=== PATIENT | male | born 1945 | race Caucasian/White ===

== ENCOUNTER 2023-05-20 11:27 | Emergency (ER) | payer OTHER, SELFPAY ==
[2023-05-20 11:42] VITALS: BP 175/89; PULSE 68; RESP 16; TEMP 36.1; O2SAT 99
--- NOTE | 2023-05-20 11:43 | PC.NURSE ---
in br to obtain ua spec.
--- NOTE | 2023-05-20 13:05 | ED.GENADULT ---
HPI - General Adult General Chief complaint: Urogenital-Male Stated complaint: Urinating Problems Source: patient Mode of arrival: ambulatory Limitations: no limitations History of Present Illness HPI narrative: Patient presents for evaluation of lower urinary tract symptoms for last 4 days. Symptoms include urgency, frequency, hesitancy, intermittent weak stream, dysuria, and suprapubic pressure. he denies any fever, chills, nausea, vomiting, low back pain. He has a history of prostate cancer which was identified back around 2013. He underwent radiation at that time. He indicates he had recurrence back in 2019. He is currently on Xtandi. He contacted his urologist office today as he has a CT scan scheduled a couple weeks from now. They advised he come to an urgent care for further evaluation. Related Data Home Medications Medication Instructions Recorded Confirmed Testosterone And Psa Remover IM [id number] 05/20/23 Xantdi 05/20/23 amlodipine 2.5 mg tablet mg 05/20/23 cefadroxil 500 mg capsule mg 05/20/23 fluorometholone 0.1 % eye drp 05/20/23 drops,suspension folic acid-vit B6-vit B12 2.5 tablet 05/20/23 mg-25 mg-2 mg tablet (WesTab Max) gabapentin 400 mg capsule mg 05/20/23 indapamide 1.25 mg tablet mg 05/20/23 insulin glargine-yfgn 100 unit/mL unit subcut 05/20/23 (3 mL) subcutaneous pen (Semglee (insulin glargine-yfgn) Pen) lisinopril 40 mg tablet mg 05/20/23 metformin 500 mg tablet,extended mg PO 05/20/23 release 24 hr omeprazole 20 mg capsule,delayed mg 05/20/23 release simvastatin 40 mg tablet mg 05/20/23 Allergies Allergy/AdvReac Type Severity Reaction Status Date / Time No Known Allergies Allergy Unverified 05/20/23 11:41 Review of Systems Review of Systems: CONSTITUTIONAL: Denies fever, chills, or sweats. EYES: Denies visual changes, redness, or discharge. ENT: Denies rhinorrhea, congestion, sore throat, or otalgia. CARDIOVASCULAR: Denies chest pain, palpitations, or edema. RESPIRATORY: Denies cough or dyspnea. GASTROINTESTINAL: Denies abdominal pain, nausea, vomiting, or diarrhea. GENITOURINARY: Reports urinary urgency, frequency, hesitancy, dribbling, intermittent force of stream, suprapubic pressure and dysuria. SKIN: Denies rash or itching. MUSCULOSKELETAL: Denies back pain, joint pain, or myalgia. NEUROLOGIC: Denies headache, numbness, dizziness, or weakness. PSYCHIATRIC: Denies anxiety or depression. PMFSH Past Medical History Medical History Prostate cancer Surgical History Surgical History No pertinent past surgical history Family History Family History Mother Family history non-contributory Social History Social History Substance use: never Living arrangements: incarcerated Occupation/Education: retired Gender identity (if verbalized by the patient): Male Sexual Orientation (if Verbalized by the Patient): Straight or Heterosexual Spiritual care concerns: No Exam Narrative: GENERAL: Well-appearing, well-nourished, and in no acute distress. HEAD: Normocephalic, atraumatic. EYES: PERRLA and EOMI. ENT: Nares clear, no rhinorrhea or epistaxis. Mucous membranes moist. Oropharynx without tonsillar hypertrophy exudate or other lesions. Bilateral TMs pearly lopez nonbulging NECK: Supple. No adenopathy or masses. No carotid bruits or JVD CHEST: Clear to auscultation. No respiratory distress. No wheezes rales or rhonchi HEART: Regular rate and rhythm. No murmur heard. Normal peripheral pulses. ABDOMEN: Soft, nontender, nondistended, normal active bowel sounds. EXTREMITIES: Normal range of motion. No edema. SKIN: Warm, dry, no rash. PROSTATE:Firm. Not boggy. No gross enlargement NEURO: No
== END 2023-05-20 13:09 | disposition home or self-care (01) ==
PROVIDERS: Emergency Provider Nurse Practitioner; PCP Family Medicine
DX: R39.15 Urgency of urination (principal); R35.0 Frequency of micturition; R39.11 Hesitancy of micturition; R30.0 Dysuria; R10.30 Lower abdominal pain, unspecified; Z85.46 Personal history of malignant neoplasm of prostate
CPT/HCPCS: 81003; 99213; G0463

== ENCOUNTER 2024-10-21 10:52 | Outpatient (CLI) | payer OTHER, SELFPAY ==
--- NOTE | ~2024-10-21 | XR_ITS ---
EXAM: XR shoulder LT min 2V DATE: 10/21/2024 11:32 HISTORY: Primary osteoarthritis, unspecified shoulder . COMPARISON: None available. FINDINGS: Decreased mineralization. No fracture or dislocation. No lytic or blastic lesion. Mild AC joint and severe glenohumeral joint osteoarthritic change. Calcification and ossification in the supe rior rotator cuff. No erosion or periosteal change. Calcified left midlung granuloma. Degenerative ch anges in the spine. IMPRESSION: Mild AC joint and severe glenohumeral joint osteoarthritis. Rotator cuff calcific tendini tis. Reviewed, dictated and finalized at location K. ING SUPERINTENDENT IMPRESSION: Mild AC joint and severe glenohumeral joint osteoarthritis. Rotator cuff calcific tendinitis.
--- NOTE | ~2024-10-21 | XR_ITS ---
EXAM: XR knee LT 3V DATE: 10/21/2024 11:32 HISTORY: Osteoarthritis of knee, unspecified . COMPARISON: None available. FINDINGS: Normal mineralization. No fracture or dislocation. No lytic or blastic lesion. Mild medial and lateral joint space narrowing. Quadriceps enthesopathy. Small volume joint fluid. Mild tricompar tmental osteophytosis. No erosion or periosteal change. Atherosclerotic vascular calcifications. 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 Reviewed, dictated and finalized at location K. [employer] ATTENDANT
== END 2024-10-21 10:53 | disposition home or self-care (01) ==
PROVIDERS: PCP Family Medicine; Visit Provider Nurse Practitioner Family
DX: M19.012 Primary osteoarthritis, left shoulder (principal); M75.32 Calcific tendinitis of left shoulder; M17.12 Unilateral primary osteoarthritis, left knee
CPT/HCPCS: 73030; 73562

== ENCOUNTER 2025-08-04 09:49 | Outpatient (CLI) | payer OTHER, SELFPAY ==
--- OUTSIDE RECORDS SUMMARY | 2025-08-04 10:35 | XMS_ITS | Encounter Summary ---
Author Organization [facility] Healthcare Address [address] [place] [address] Care Team Providers Care Bioinformatician Name Role Phone Miguel Mccord MD Primary Care Provider [phone] Darrell Marroquin MD Unavailable Emeli Marin CDE Unavailable [phone] Jung Hillman MD Primary Care Provider [phone] Encounter Details Date Type Department Care Team (Late st Contact Info) Description 02/22/2020 Telephone [facility] ([facility]) [address] [place] [id number] Sera Sequeira, RT Social History Tobacco Use Types Packs/Day Years Used Date Smoking Tobacco: Former Sex and Gender Information Value Date Recorded Sex Assigned at Not on file Legal 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 Gender Identity Male 01/02/2020 11:06 PM CDT Sexual Orientation Straight 01/02/2020 11 :06 PM CDT documented as of this encounter Plan of Treatment Not on file documented as of this encounter Visit Diagnoses Not on filedocumented in this encounter Care Teams Bioinformatician Relationship Specialty Start Date End Date Miguel Mccord MD [address] [place] [address] [id number] PCP - General 07/23/17 08/29/20 Jung Hillman MD [facility] [address] [place] [address] PCP - General Family Medicine 06/23/25 Darrell Marroquin MD [address] [facility] [address] [place] [address] Consulting Physician Pain Management 12/05/22 Emeli Marin, ROSEMARY [address] [facility] [place] [address] Attending Ambulatory Care 02/27/23 06/23/24 documented as of this encounter
--- OUTSIDE RECORDS SUMMARY | 2025-08-04 10:35 | XMS_ITS | Clinical Summary ---
Author Organization [facility] Address [address] [place] [address] Care Team Providers Care Bus Boy Name Role Phone Darrell Marroquin MD Unavailable Jung Hillman MD Primary Care Provider [phone] Allergies No known active allergies Medications RESTASIS 0.05 % ophthalmic emulsion Administer 1 drop into the right eye every 12 (twelve) hours 2017 Active aspirin 81 mg tablet Take 1 tablet (81 mg total) by mouth daily Active enzalutamide (XTANDI) 40 mg capsule Take 2 capsules (80 mg total) by mouth daily 2019 Active cholecalciferol (VITAMIN D-3) 1,000 unit capsule Take 1 capsule (1,000 Units total) by mouth daily Active loteprednol (LOTEMAX) 0.5 % ophthalmic suspension Administer 1 drop into both eyes daily 2023 Active HumaLOG 100 unit/mL pen for injection Inject 6 units for blood sugar readings over 200. Maximum 18 units per day. PRN for procedures. 15 mL 1 2024 Active Additional Information Patient taking differently: Daily PRN, Inject 6 units for blood sugar readings over 200. Maximum 18 units per day. PRN for procedures., Reported on 06/29/2025 blood glucose diagnostic (glucose blood) stripIndications:Type 2 diabetes mellitus with hyperglycemia, with long-term current use of insulin (HCC),Pure hypercholesterolemia,E ssential hypertension Use once daily to test blood sugars 100 each 11 11/03 Active lancets 33 gauge miscIndications:Type 2 diabetes mellitus with hyperglycemia, with long-term current use of insulin (HCC),Pure hypercholesterolemia,E ssential hypertension Use to test blood sugar daily 100 each 11 2024 Active pregabalin (LYRICA) 100 mg capsule Take 1 capsule (100 mg total) by mouth daily Active insulin glargine (LANTUS) 100 unit/mL (3 mL) pen for injection INJECT 40 UNITS UNDER THE SKIN NIGHTLY 30 mL 2 2024 Active pen needle, diabetic (BD Ultra-Fine Short Pen Needle) 31 gauge x 5/16 needle USE TO INJECT ONCE DAILY DIRECTED 100 each 2024 Active simvastatin (ZOCOR) 40 mg tabletIndications:Pure hypercholesterolemia Take 1 tablet (40 mg total) by mouth daily 90 tablet 2 2024 Active indapamide (LOZOL) 1.25 mg tablet Take 1 tablet (1.25 mg total) by mouth daily 90 tablet 2 2024 Active lisinopriL (PRINIVIL,ZESTRIL) 40 mg tablet Take 1 tablet (40 mg total) by mouth daily 90 tablet 2 2024 Active amLODIPine (NORVASC) 2.5 mg tablet Take 1 tablet (2.5 mg total) by mouth daily 100 tablet 1 2024 Active omeprazole (PriLOSEC) 20 mg capsule TAKE 1 CAPSULE BY MOUTH EVERY DAY 100 capsule 1 2024 Active metFORMIN XR (GLUCOPHAGE XR) 500 mg 24 hr tabletIndications:Type 2 diabetes mellitus with hyperglycemia, with long-term current use of insulin ([facility]) TAKE 2 TABLETS BY MOUTH TWICE A DAY 360 tablet 1 2024 Active metFORMIN XR (GLUCOPHAGE XR) 500 mg 24 hr tablet TAKE 2 TABLETS BY MOUTH TWICE A DAY 360 tablet 1 08/01 Discontinued Active Problems Problem Noted Date Diagnosed Date Type 2 diabetes mellitus wit h hyperglycemia, with long-term current use of insulin 06/24/2024 Slow transit constipation 07/03/2023 Chronic bilateral low back pain with bilateral s ciatica 08/01/2022 Gastroesophageal reflux disease without esophagi tis 12/06/2020 Abdominal aortic aneurysm (AAA) without rupture 12/06/2020 Prostate cancer 08/30/2020 Pure hypercholesterolemia 08/30/2020 Essential hypertension 08/30/2020 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 08/30/2020 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 Assessment & Plan (10/06/2019 3:06 PM REAL ESTATE CLOSER): Comfortable Assessment & Plan (07/29/2018 2:25 PM REAL ESTATE CLOSER): Comfortable 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 Assessment & Plan (10/06/2019 3:06 PM REAL ESTATE CLOSER): status post (s/p) trab right eye (OD)- intraocular pressure (IOP) stable off all medications Bleb yokasta negative Follows with local windows vmware engineer [id number] for IOP checks between our annual visits Assessment & Plan (07/29/2018 2:25 PM REAL ESTATE CLOSER): status post (s/p) trab right eye (OD)- intraocular pressure (IOP) stable History of cornea transplant OD 199807/20/2015 Assessment & Plan (05/21/2022 1:11 PM CDT): Hx Endothelial Fuchs dystrophy s/p PKP 1998 TODAY: -Doing well, graft clear -Band K but stable and asymptomatic PLAN: -Continue FML Daily OD -Continue Olena PRN OD -Contine Restasis BID OD -LTX PRN -Monocular precautions (phthisis OS 2/2 ruptured globe) -RTC annual, sooner PRN Assessment & Plan (04/24/2021 1:46 PM CDT): Hx Endothelial Fuchs dystrophy status post (s/p) PKP 1998 TODAY: -Doing well, graft clear -Band K but stable and asymptomatic PLAN: -Continue FML Daily OD -Continue Olena PRN OD -Contine Restasis BID OD -LTX PRN -Monocular precautions (phthisis OS 2/2 ruptured globe) -RTC annual, sooner PRN Assessment & Plan (03/28/2020 4:13 PM CDT): Stable CPM RTC 1 yr Assessment & Plan (02/16/2019 1:03 PM CDT): Confocal today 826 OD CPM Restasis BID OU Lotemax drops QD OD Lotemax francisco PRN OS Olena 128 PRN QD - BID (in am) OD Keep Dr. 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 Assessment & Plan (02/16/2019 12:55 PM CDT): S/p enucleation Irregular astigmatism 05/24/2010 Neovascularization, cornea 05/24/2010 Resolved Problems Problem Noted Date Diagnosed Date Resolved Date Change in bowel habit 07/03/20232023 Radicular leg pain 08/01/2022 Medicare annual wellness visit, subsequent 12/06/2020 12/12/2022 Type 2 diabetes mellitus wit hout complication, without long-term current use of insulin 12/06/2020 06/24/2024 Exposure to potentially hazardous body fluids 08/30/20 20 04/18/2022 Chronic allergic conjunctivitis 05/24/2010 12/15/2023 Encounters Date Type Department Care Team Description 07/14/2025 Telephone [facility] Medical [facility] at [address] [place] [address] Jung Hillman MD Referral Request 06/29/2025 2:30 PM CDT Office Visit [facility] at [address] [place] [address] Jung Hillman MD Medicare annual wellness visit, subsequent (Primary Dx); Essential hypertension; Type 2 diabetes mellitus with hyperglycemia, with long-term current use of insulin (HCC); Pure hypercholesterolemia; Gastroesophageal reflux disease without esophagitis; Chronic bilateral low back pain with bilateral sciatica; Prostate cancer (HCC) 06/28/2025 Results Follow-Up [facility] at [address] [address] Jaqui Wheeler PA Hemoglobin A1c, Comprehensive metabolic panel, CBC with auto differential, Additional followed-up results: 2 06/21/2025 Telephone [facility] at [address] [address] Jung Hillman MD Referral Request 05/10/2025 1:00 PM CDT Office Visit [facility] at [address] [address] Jung Hillman MD Type 2 diabetes mellitus with hyperglycemia, with long-term current use of insulin (HCC) (Primary Dx); Essential hypertension; Gastroesophageal reflux disease without esophagitis; Pure hypercholesterolemia; Chronic bilateral low back pain without sciatica 05/08/2025 Results Follow-Up [facility] at [address] [address] Jaqui Wheeler PA Comprehensive metabolic panel, CBC with auto differential, Lipid panel, Hemoglobin A1c from Last 3 Months Immunizations Immunization Administration Dates Next Due Influenza, Quad, Adjuvantate d, Intramuscular 05/28/2022,05/23/2021 Influenza, Quadrivalent, Hig h Dose, Preservative Free, Intrr 06/24/2023,06/09/2020 Influenza, Trivalent, High D ose, Split, Preservative Free, Intramuscular 07/01/2024 Influenza, Unspecified 06/22/2019 Pfizer SARS-CoV-2 Monovalent Vaccination (12+ Yrs) PURPLE 07/07/2021,12/05/2020,11/12/2020 Pneumococcal Conjugate PCV 13 07/16/2018 Pneumococcal Conjugate Pcv20 07/08/2024 Pneumococcal Polysaccharide PPV23 07/23/2019 RSV Vaccine, Pref, Recombina nt, Subunit, Adjuvanted, PF, IM (Arexvy) 07/01/2024 Sars-cov-2 Covid-19 Mrna, Bi valent, Original/omicron Ba.1 07/01/2024,06/24/2023 Surgical History Surgery Date Site/Laterality Comments CATARACT EXTRACTION W/ INTRAOCULAR LENS IMPLANT Right CORNEAL TRANSPLANT Bilateral PROSTATECTOMY Medical History Medical History Date Comments Glaucoma Cancer (HCC) prostate Diabetes mellitus Hypertension Asthma Type 2 diabetes mellitus GERD (gastroesophageal reflux disease) Arthritis Benign prostatic hyperplasia 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 for fall Family History Medical History Relation Name Comments No Known Problems Daughter Early Father Lan Heart attack Father Lan Heart disease Father Lan Hypertension Mother Coty Cancer Mother's Sister Melissa Cancer Other Crohn's disease Other Cataracts Neg Hx Fuchs' dystrophy Neg Hx Glaucoma Neg Hx Macular degeneration Neg Hx Retinal detachment Neg Hx Relation Name Status Comments Daughter Alive Father Lan Mother [place]y Mother's Sister Melissa Other Social History Tobacco Use Types Packs/Day Years Used Date Smoking Tobacco: Former Cigarettes 1 45 Pipe Quit: 04/04/20 22 Smokeless Tobacco: Never Tobacco Cessation:Counseling Given: Not Answered Alcohol Use Standard Drinks/Week Comments Never 0 (1 standard drink = 0.6 oz pur e alcohol) AUDIT-C Answer Date Recorded Q1: How often do you have a drink containing alcohol? Never 08/28/2023 Q2: How many drinks containi ng alcohol do you have on a typical day when you are drinking? Patient does not drink Q3: How often do you have si x or more drinks on one occasion? Never 08/28/2023 PHQ-2 Answer Date Recorded PHQ-2 Total Score (If total score is 3 or more points, staff should administer the PHQ-9) 0 06/29/2025 Personal Safety Answer Date Recorded Have you ever been in or are you currently in a harmful physical or emotional relationship or is someone making you feel afraid or unsafe? Denies 08/28/2023 Sex and Gender Information Value Date Recorded Sex Assigned at Not on file Legal Sex Male 3:15 AM REAL ESTATE CLOSER Gender Identity Male 01/02/2020 11:06 PM CDT Sexual Orientation Straight 01/02/2020 11 :06 PM CDT Last Filed Vital Signs Vital Sign Reading Time Taken Comments Blood Pressure 170/78 06/29/2025 2:42 PM CDT Pulse 62 06/29/2025 2:42 PM CDT Temperature 36.6 C (97.8 F) 06/29/2025 2:42 PM CDT Respiratory Rate 18 08/28/2023 11:45 AM REAL ESTATE CLOSER Oxygen Saturation 96% 06/29/2025 2:42 PM CDT Inhaled Oxygen Concentration - - Weight 97.3 kg (214 lb 6.4 oz) 06/29/2025 2:42 P M CDT Height 180.3 cm (5' 11) 06/29/2025 2:42 PM CDT Body Mass Index 29.9 06/29/2025 2:42 PM CDT Plan of Treatment Health Maintenance Due Date Last Done Comments Hepatitis C Screening 1945 DTaP/Tdap/Td Vaccine (1 - Tdap) 1958 Hepatitis B Screening 1965 Zoster Vaccine (1 of 2) 1966 Lung Cancer Screening 1997 Dilated Eye Exam 12/01/2024 12/02/2023, , 07/10/2022, Additional history exists Influenza Vaccine (#1) 2025 , 06/24/2023, 05/28/2022, Additional history exists Albumin Creatinine Ratio, Urine 10/29/2025 5, 10/06/2023 Hemoglobin A1C 12/26/2025 06/27/2025, 04/22, 10/29/2024, Additional history exists Lipid Panel 06/27/2026 06/27/2025, 04/22, 10/29/2024, Additional history exists eGFR 06/27/2026 06/27/2025, 04/22, 10/29/2024, Additional history exists Depression Screening 06/29/2026 06/29/2025, 05/10/2025, 06/24/2024, Additional history exists Fall Risk Assessment 06/29/2026 06/29/2025, 06/24/2024, 12/15/2023, Additional history exists Foot Exam 06/29/2026 06/29/2025, 04/22, 06/16/2023, Additional history exists Well Visit 65+ 06/29/2026 06/29/2025, 11/2023, 06/16/2023, Additional history exists Colon Cancer Screening-CT Colonography Discontinued 08/28/2023 Colon Cancer Screening-Colonoscopy Discontinued 08/28/2023 Colon Cancer Screening-DNA Stool Discontinued 08/28/20 23, 09/06/2020 Colon Cancer Screening-FIT Discontinued 08/28/2023, Colon Cancer Screening-FOBT Discontinued 08/28/2023, 1 11/07/2019 Colon Cancer Screening-Sigmoidoscopy Discontinued 08/28/2023 Colorectal Cancer Screening Discontinued Covid-19 Vaccine Discontinued 07/01/2024, 06/2024, 06/24/2023, Additional history exists Pneumococcal vaccine 65+ Completed 024, 07/23/2019, 07/16/2018 Abdominal Aortic Aneurysm (A AA) Screen Completed 08/09/2024, 09/25/2023, 06/16/2023, Additional history exists Goals Goal Patient Goal Type Associated Problems Recent Progress Patient-Stated? Author Diabetes Goal - Patient verbalizes knowledge and ability to manage diabetes ACO Care Management No Emeli Marin CDE Note: Problem: Knowledge deficit - Diabetes Interventions: - Provide educational materials specific to patient needs. - Follow up within 1-2 weeks of mailing to review materials and ensure patient understands information provided. Diabetic Diet Goal - Patient will verbalize understanding of diabetic diet and ability to adhere to diet guidelines ACO Care Management No Emeli Marin CDE Note: Problem: Knowledge deficit- Diabetic Diet Interventions: - Assess barriers to diabetic diet adherence and provide resources appropriate for patient. Address barriers to diabetic diet adherence. - Provide educational resources with diet guidelines, Healthy Plate method, carb counting, or calorie restricted ADA diet, as ordered by physician. - Encourage a few small diet changes at a time. Create a plan with patient. Provide follow-up weekly to assess patient and take next steps in plan. Procedures Procedure Name Priority Date/Time Associated Diagnosis Comments PSA SCREEN Routine 06/27/2025 11:19 AM CDT Type 2 diabetes mellitus with hyperglycemia, with long-term current use of insulin (HCC) Essential hypertension Pure hypercholesterolemia LIPID PANEL Routine 06/27/2025 11:19 AM CDT Type 2 diabetes mellitus with hyperglycemia, with long-term current use of insulin (HCC) Essential hypertension Pure hypercholesterolemia CBC WITH AUTO DIFFERENTIAL Routine 06/27/2025 11:19 AM CDT Type 2 diabetes mellitus with hyperglycemia, with long-term current use of insulin (HCC) Essential hypertension Pure hypercholesterolemia COMPREHENSIVE METABOLIC PANEL Routine 06/27/2025 11:19 AM CDT Type 2 diabetes mellitus with hyperglycemia, with long-term current use of insulin (HCC) Essential hypertension Pure hypercholesterolemia HEMOGLOBIN A1C Routine 06/27/2025 11:19 AM CDT Type 2 diabetes mellitus with hyperglycemia, with long-term current use of insulin (HCC) Essential hypertension Pure hypercholesterolemia HEMOGLOBIN A1C Routine 05/05/2025 11:01 AM CDT Type 2 diabetes mellitus with hyperglycemia, with long-term current use of insulin (HCC) Pure hypercholesterolemia Essential hypertension LIPID PANEL Routine 05/05/2025 11:01 AM CDT Type 2 diabetes mellitus with hyperglycemia, with long-term current use of insulin (HCC) Pure hypercholesterolemia Essential hypertension CBC WITH AUTO DIFFERENTIAL Routine 05/05/2025 11:01 AM CDT Type 2 diabetes mellitus with hyperglycemia, with long-term current use of insulin (HCC) Pure hypercholesterolemia Essential hypertension COMPREHENSIVE METABOLIC PANEL Routine 05/05/2025 11:01 AM CDT Type 2 diabetes mellitus with hyperglycemia, with long-term current use of insulin (HCC) Pure hypercholesterolemia Essential hypertension ALBUMIN CREATININE RATIO, URINE Routine 10/29/2024 1:38 PM REAL ESTATE CLOSER Type 2 diabetes mellitus with hyperglycemia, without long-term current use of insulin (HCC) CT ABDOMEN PELVIS W CONTRAST Schedule Routine, Read Routine (OP Routine) 08/09/2024 11:31 AM REAL ESTATE CLOSER Prostatic malignant neoplasm (HCC) DIABETES EYE EXAM Routine 12/02/2023 COLONOSCOPY 08/28/2023 10:26 AM REAL ESTATE CLOSER from Last 3 Months or Most Recently Relevant to Health Maintenance Results * PSA screen (06/27/2025 11:19 AM CDT) PSA 0.04 < OR = 4.00 ng/mL [facility] Comment: The total PSA value from this assay system is standardized against the WHO standard. The test result will be approximately 20% lower when compared to the equimolar-standardized total PSA ([place]). Comparison of serial PSA results should be interpreted with this fact in mind. This test was performed using the Siemens chemiluminescent method. Values obtained from different assay methods cannot be used interchangeably. PSA levels, regardless of value, should not be interpreted as absolute evidence of the presence or absence of disease. Blood 06/27/2025 11:1 9 AM CDT 06/27/2025 11:19 AM CDT Narrative [facility] - 06/28/2025 6:14 AM CDT FASTING:YES FASTING: YES Jung Hillman MD LAB BLOOD ORDERABLES Final Re sult [facility] [address] [place] [address] * (ABNORMAL) CBC with auto differential (06/27/2025 11:19 AM CDT) WBC 7.1 3.8 - 10.8 Thousand/u L [facility] RBC, POC 4.20 4.20 - 5.80 Million/uL [facility] Hgb 12.2(L) 13.2 - 17.1 g/dL [facility] Hct 38.2(L) 38.5 - 50.0 % [facility] MCV 91.0 80.0 - 100.0 fL [facility] MCH 29.0 27.0 - 33.0 pg [facility] MCHC 31.9(L) 32.0 - 36.0 g/dL [facility] Comment: For adults, a slight decrease in the calculated MCHC value (in the range of 30 to 32 g/dL) is most likely not clinically significant; however, it should be interpreted with caution in correlation with other red cell parameters and the patient's clinical condition. Rdw 14.3 11.0 - 15.0 % [facility] Platelets 321 140 - 400 Thousand/u L [facility] MPV 10.3 7.5 - 12.5 fL [facility] Neutrophils, abs 4,828 1,500 - 7,800 cells/uL [facility] Lymphocytes, abs 1,519 850 - 3,900 cells/uL [facility] Monocyte abs 568 200 - 950 cells/uL [facility] Eosinophils, abs 163 15 - 500 cells/uL [facility] Basophils, abs 21 0 - 200 cells/uL [facility] Neutrophils 68 % [facility] Lymphocyte pct 21.4 % [facility] Monocytes 8.0 % [facility] Eosinophils 2.3 % [facility] Basophils 0.3 % [facility] Blood 06/27/2025 11:1 9 AM CDT 06/27/2025 11:19 AM CDT Narrative [facility] - 06/28/2025 6:14 AM CDT FASTING:YES FASTING: YES Jung Hillman MD LAB BLOOD ORDERABLES Final Re sult [facility] [address] [place] [address] * (ABNORMAL) Hemoglobin A1c (06/27/2025 11:19 AM CDT) Hgb A1C 7.8(H) <5.7 % of total Hgb [facility] Comment: For someone without known diabetes, a hemoglobin A1c value of 6.5% or greater indicates that they may have diabetes and this should be confirmed with a follow-up test. For someone with known diabetes, a value <7% indicates that their diabetes is well controlled and a value greater than or equal to 7% indicates suboptimal control. A1c targets should be individualized based on duration of diabetes, age, comorbid conditions, and other considerations. Currently, no consensus exists regarding use of hemoglobin A1c for diagnosis of diabetes for children. Blood 06/27/2025 11:1 9 AM CDT 06/27/2025 11:19 AM CDT Narrative [facility] - 06/28/2025 6:14 AM CDT FASTING:YES FASTING: YES us Jung Hillman MD LAB BLOOD ORDERABLES Final Re [facility] [address] [place] [address] * (ABNORMAL) Lipid panel (06/27/2025 11:19 AM CDT) [facility] Cholesterol 166 <200 mg/dL [facility] HDL 47 > OR = 40 mg/dL [facility] Triglycerides 201(H) <150 mg/dL [facility] Comment: If a non-fasting specimen was collected, consider repeat triglyceride testing on a fasting specimen if clinically indicated. Mary et al. J. of Clin. Lipidol. 2015;9:129-169. LDL 89 mg/dL (calc) [facility] Comment: Reference range: <100 Desirable range <100 mg/dL for primary prevention; <70 mg/dL for patients with CHD or diabetic patients with > or = 2 CHD risk factors. LDL-C is now calculated using the Aaron-Alysha calculation, which is a validated novel method providing better accuracy than the Friedewald equation in the estimation of LDL-C. Aaron DODGE et al. STEFAN. 2013;310(19): 2463-5890 (http://education.tripJane.[employer]/faq/DTE797) Chol/HDL ratio 3.5 <5.0 (calc) [facility] Non-HDL, (LDL+VLDL) 119 <130 mg/dL (calc) [facility] Comment: For patients with diabetes plus 1 major ASCVD risk factor, treating to a non-HDL-C goal of <100 mg/dL (LDL-C of <70 mg/dL) is considered a therapeutic option. Blood 06/27/2025 11:1 9 AM CDT 06/27/2025 11:19 AM CDT Narrative [facility] - 06/28/2025 6:14 AM CDT FASTING:YES FASTING: YES Jung Hillman MD LAB BLOOD ORDERABLES Final Re sult [facility] [address] [place] [address] * (ABNORMAL) Comprehensive metabolic panel (06/27/2025 11:19 AM CDT) Glucose 124(H) 65 - 99 mg/dL [facility] Comment: Fasting reference interval For someone without known diabetes, a glucose value between 100 and 125 mg/dL is consistent with prediabetes and should be confirmed with a follow-up test. BUN 16 7 - 25 mg/dL [facility] Creatinine 0.75 0.70 - 1.28 mg/dL [facility] eGFR 92 > OR = 60 mL/min/1.7 3m2 [facility] BUN/creat ratio SEE NOTE: 6 - 22 (calc) [facility] Comment: Not Reported: BUN and Creatinine are within reference range. Sodium 136 135 - 146 mmol/L [facility] Potassium, pl 4.1 3.5 - 5.3 mmol/L [facility] Chloride 94(L) 98 - 110 mmol/L [facility] CO2 29 20 - 32 mmol/L [facility] Calcium 10.2 8.6 - 10.3 mg/dL [facility] Protein, sr 7.5 6.1 - 8.1 g/dL [facility] Albumin 4.6 3.6 - 5.1 g/dL [facility] GLOBULIN 2.9 1.9 - 3.7 g/dL (calc) [facility] Alb/glob ratio 1.6 1.0 - 2.5 (calc) [facility] Bilirubin, total 0.9 0.2 - 1.2 mg/dL [facility] Alk phos 59 35 - 144 U/L [facility] AST 13 10 - 35 U/L [facility] ALT (SGPT) 9 9 - 46 U/L [facility] Blood 06/27/2025 11:1 9 AM CDT 06/27/2025 11:19 AM CDT Narrative [facility] - 06/28/2025 6:14 AM CDT FASTING:YES FASTING: YES us Jung Hillman MD LAB BLOOD ORDERABLES Final Re sult [facility] [address] [place] [address] * (ABNORMAL) CBC with auto differential (05/05/2025 11:01 AM CDT) WBC 5.4 3.8 - 10.8 Thousand/u L [facility] RBC, POC 3.92(L) 4.20 - 5.80 Million/uL [facility] Hgb 11.4(L) 13.2 - 17.1 g/dL [facility] Hct 36.9(L) 38.5 - 50.0 % [facility] MCV 94.1 80.0 - 100.0 fL [facility] MCH 29.1 27.0 - 33.0 pg [facility] MCHC 30.9(L) 32.0 - 36.0 g/dL [facility] Comment: For adults, a slight decrease in the calculated MCHC value (in the range of 30 to 32 g/dL) is most likely not clinically significant; however, it should be interpreted with caution in correlation with other red cell parameters and the patient's clinical condition. Rdw 13.4 11.0 - 15.0 % [facility] Platelets 225 140 - 400 Thousand/u L [facility] MPV 10.7 7.5 - 12.5 fL [facility] Neutrophils, abs 3,213 1,500 - 7,800 cells/uL [facility] Lymphocytes, abs 1,361 850 - 3,900 cells/uL [facility] Monocyte abs 578 200 - 950 cells/uL [facility] Eosinophils, abs 211 15 - 500 cells/uL [facility] Basophils, abs 38 0 - 200 cells/uL [facility] Neutrophils 59.5 % [facility] Lymphocyte pct 25.2 % [facility] Monocytes 10.7 % [facility] Eosinophils 3.9 % [facility] Basophils 0.7 % [facility] Blood 05/05/2025 11:0 1 AM CDT 05/05/2025 11:02 AM CDT Narrative [facility] - 05/06/2025 4:25 AM CDT FASTING:YES FASTING: YES Jung Hillman MD LAB BLOOD ORDERABLES Final Re sult Performing Organization Address [facility] Co de Phone Number [place] [address] [place] [address] * (ABNORMAL) Hemoglobin A1c (05/05/2025 11:01 AM CDT) Hgb A1C 8.3(H) <5.7 % of total Hgb [facility] Comment: For someone without known diabetes, a hemoglobin A1c value of 6.5% or greater indicates that they may have diabetes and this should be confirmed with a follow-up test. For someone with known diabetes, a value <7% indicates that their diabetes is well controlled and a value greater than or equal to 7% indicates suboptimal control. A1c targets should be individualized based on duration of diabetes, age, comorbid conditions, and other considerations. Currently, no consensus exists regarding use of hemoglobin A1c for diagnosis of diabetes for children. Blood 05/05/2025 11:0 1 AM CDT 05/05/2025 11:02 AM CDT Narrative [facility] - 05/06/2025 4:25 AM CDT FASTING:YES FASTING: YES Jung Hillman MD LAB BLOOD ORDERABLES Final Re sult Performing Organization Address [facility] Co de Phone [facility] [address] [place] [address] * (ABNORMAL) Lipid panel (05/05/2025 11:01 AM CDT) Cholesterol 183 <200 mg/dL [facility] HDL 46 > OR = 40 mg/dL [facility] Triglycerides 215(H) <150 mg/dL [facility] Comment: If a non-fasting specimen was collected, consider repeat triglyceride testing on a fasting specimen if clinically indicated. Mary et al. J. of Clin. Lipidol. 2015;9:129-169. LDL 103(H) mg/dL (calc) [facility] Comment: Reference range: <100 Desirable range <100 mg/dL for primary prevention; <70 mg/dL for patients with CHD or diabetic patients with > or = 2 CHD risk factors. LDL-C is now calculated using the Sylvester calculation, which is a validated novel method providing better accuracy than the Friedewald equation in the estimation of LDL-C. Aaron SS et al. STEFAN. 2013;310(19): 9325-7664 (http://education.[employer]/faq/GHF984) Chol/HDL ratio 4.0 <5.0 (calc) [facility] Non-HDL, (LDL+VLDL) 137(H) <130 mg/dL (calc) [facility] [employer] [facility] Comment: For patients with diabetes plus 1 major ASCVD risk factor, treating to a non-HDL-C goal of <100 mg/dL (LDL-C of <70 mg/dL) is considered a therapeutic option. Blood 05/05/2025 11:0 1 AM CDT 05/05/2025 11:02 AM CDT Narrative [facility] - 05/06/2025 4:25 AM CDT FASTING:YES FASTING: YES Jung Hillman MD LAB BLOOD ORDERABLES Final Re sult [facility] [address] [place] [address] * (ABNORMAL) Comprehensive metabolic panel (05/05/2025 11:01 AM CDT) Glucose 183(H) 65 - 99 mg/dL [facility] Comment: Fasting reference interval For someone without known diabetes, a glucose value >125 mg/dL indicates that they may have diabetes and this should be confirmed with a follow-up test. BUN 18 7 - 25 mg/dL [facility] Creatinine 0.83 0.70 - 1.28 mg/dL [facility] eGFR 90 > OR = 60 mL/min/1.7 3m2 [facility] [employer] BUN/creat ratio SEE NOTE: 6 - 22 (calc) [facility] Comment: Not Reported: BUN and Creatinine are within reference range. Sodium 136 135 - 146 mmol/L [facility] [employer] Potassium, pl 4.3 3.5 - 5.3 mmol/L [facility] Chloride 98 98 - 110 mmol/L [facility] CO2 28 20 - 32 mmol/L [facility] Calcium 9.7 8.6 - 10.3 mg/dL [facility] [employer] Protein, sr 6.8 6.1 - 8.1 g/dL [facility] Albumin 4.3 3.6 - 5.1 g/dL [facility] [employer] GLOBULIN 2.5 1.9 - 3.7 g/dL (calc) [facility] Alb/glob ratio 1.7 1.0 - 2.5 (calc) [facility] Bilirubin, total 0.5 0.2 - 1.2 mg/dL [facility] Alk phos 57 35 - 144 U/L [facility] AST 12 10 - 35 U/L [facility] ALT (SGPT) 9 9 - 46 U/L [facility] Blood 05/05/2025 11:0 1 AM CDT 05/05/2025 11:02 AM CDT Narrative [facility] - 05/06/2025 4:25 AM CDT FASTING:YES FASTING: YES us Jung Hillman MD LAB BLOOD ORDERABLES Final Re sult [facility] [address] [place] [address] * (ABNORMAL) Albumin Creatinine Ratio, Urine (10/29/2024 1:38 PM REAL ESTATE CLOSER) Creatinine, ur 79 20 - 320 mg/dL [facility] Microalbumin, ur 4.0 See Note: mg/dL [facility] Comment: Reference Range: Reference Range Not established Microalbumin/creat ratio 51(H) <30 mg/g creat [facility] Comment: The ADA defines abnormalities in albumin excretion as follows: Albuminuria Category Result (mg/g creatinine) Normal to Mildly increased <30 Moderately increased 30-299 Severely increased > OR = 300 The ADA recommends that at least two of three specimens collected within a 3-6 month period be abnormal before considering a patient to be within a diagnostic category. Urine 10/29/2024 1:38 PM REAL ESTATE CLOSER 10/29/2024 1:39 PM REAL ESTATE CLOSER Narrative [facility] - 10/30/2024 7:49 AM REAL ESTATE CLOSER FASTING:YES FASTING: YES Jung Hillman MD LAB URINE ORDERABLES Final [facility] [address] [place] [address] * CT Abdomen Pelvis W Contrast (08/09/2024 11:31 AM REAL ESTATE CLOSER) Anatomical Region Laterality Modality Body N/A Computed Tomogra phy 08/09/2024 4:16 PM REAL ESTATE CLOSER Narrative 08/09/2024 4:27 PM REAL ESTATE CLOSER EXAM DESCRIPTION: CT ABDOMEN PELVIS W CONTRAST REASON FOR STUDY: prostatic malignant neoplasm Prostatic malignant neoplasm TECHNIQUE: CT scan of the abdomen and pelvis performed with intravenous and without oral contrast using helical scanning technique with dynamic intravenous contrast injection. Reconstructed coronal and sagittal MPR images reviewed. All images stored on PACS. Automated exposure control was used as a dose optimization technique for this examination. CONTRAST TYPE/DOSE: 100mL of IOVERSOL 350 MG IODINE/ML INTRAVENOUS SYRINGE injected via intravenous COMPARISON: 06/04/2023. FINDINGS: LOWER CHEST: There is a calcified granuloma scratch the calcified granulomas in the lingula. No pleural effusion. LIVER: Diffuse hepatic steatosis. Liver size and contour normal. No focal hepatic lesion. GALLBLADDER: No gallstones or overt inflammatory change. BILE DUCTS: No biliary ductal dilation. Top spleen size normal. No focal splenic lesion. SPLEEN: No pancreatic mass or inflammatory change. PANCREAS: Normal ADRENALS: There is a macroscopic fat attenuation right adrenal nodule, this is 1.2 x 0.8 cm -85 Hounsfield units evidence of a benign adrenal myelolipoma. KIDNEYS/URINARY TRACT: No right renal calculus. No left renal calculus. There are low-density renal lesions, in the lower pole left kidney 1.4 cm -2 Hounsfield units which meets criteria as a cyst. The urinary bladder is unremarkable. GI: No evidence of bowel obstruction. Prominent fecal material is seen in the colon. The appendix and terminal ileum are normal. Small sliding hiatal hernia. No pneumatosis. PERITONEUM: No ascites or free air. There is no mesenteric mass or lymphadenopathy. RETROPERITONEUM: Mildly prominent retroperitoneal lymph nodes are slightly smaller. An example in the left para-aortic station 1.2 x 0.9 cm (image 76), previously this measured 1.4 x 0.8 cm. A left common iliac chain lymph node is now 0.8 x 0.7 cm (image 89), previously 1.0 x 0.9 cm as remeasured. REPRODUCTIVE: Prostate is small. There are metallic densities in the prostate. VASCULATURE: There is mild aneurysmal dilation of the abdominal aorta. The abdominal aorta is 3.7 x 3.8 cm (image 75) which is unchanged. MUSCULOSKELETAL: Bone windows demonstrate no acute or aggressive osseous abnormality. OTHER: No other abnormality. IMPRESSION: No evidence of an acute abnormality of the abdomen and pelvis. Mildly prominent retroperitoneal lymph nodes are slightly smaller compared with the prior CT examination and prostate PET. Unchanged mild aneurysmal dilation of the abdominal aorta 3.8 cm. Hepatic steatosis. Right adrenal myelolipoma. Small sliding hiatal hernia. THIS IS AN ELECTRONICALLY VERIFIED FINAL REPORT 08/09/2024 4:27 PM - Electronically signed by Edgardo Dominguez M.D. CH: NAVIN Report ID: [id number] Reading Location: [id number] Procedure Note Edgardo Dominguez Jr., MD - 08/09/2024 EXAM DESCRIPTION: CT ABDOMEN PELVIS W CONTRAST REASON FOR STUDY: prostatic malignant neoplasm Prostatic malignant neoplasm TECHNIQUE: CT scan of the abdomen and pelvis performed with intravenousand without oral contrast using helical scanning technique with dynamic intravenous contrast injection. Reconstructed coronal and sagittal MPRimages reviewed. All images stored on PACS. Automated exposure control was usedas a dose optimization technique for this examination. CONTRAST TYPE/DOSE: 100mL of IOVERSOL 350 MG IODINE/ML INTRAVENOUSSYRINGE injected via intravenous COMPARISON: 06/04/2023. FINDINGS: LOWER CHEST: There is a calcified granuloma scratch thecalcified granulomas in the lingula. No pleural effusion. LIVER: Diffuse hepatic steatosis. Liver size and contour normal. Nofocal hepatic lesion. GALLBLADDER: No gallstones or overt inflammatory change. BILE DUCTS: No biliary ductal dilation. Top spleen size normal. Nofocal splenic lesion. SPLEEN: No pancreatic mass or inflammatory change. PANCREAS: Normal ADRENALS: There is a macroscopic fat attenuation right adrenal nodule,this is 1.2 x 0.8 cm -85 Hounsfield units evidence of a benign adrenalmyelolipoma. KIDNEYS/URINARY TRACT: No right renal calculus. No left renal calculus. There are low-density renal lesions, in the lower pole left kidney 1.4 cm-2 Hounsfield units which meets criteria as a cyst. The urinary bladder is unremarkable. GI: No evidence of bowel obstruction. Prominent fecal material is seenin the colon. The appendix and terminal ileum are normal. Small slidinghiatal hernia. No pneumatosis. PERITONEUM: No ascites or free air. There is no mesenteric mass or lymphadenopathy. RETROPERITONEUM: Mildly prominent retroperitoneal lymph nodes areslightly smaller. An example in the left para-aortic station 1.2 x 0.9 cm (image76), previously this measured 1.4 x 0.8 cm. A left common iliac chain lymphnode is now 0.8 x 0.7 cm (image 89), previously 1.0 x 0.9 cm as remeasured. REPRODUCTIVE: Prostate is small. There are metallic densities in the prostate. VASCULATURE: There is mild aneurysmal dilation of the abdominal aorta.The abdominal aorta is 3.7 x 3.8 cm (image 75) which is unchanged. MUSCULOSKELETAL: Bone windows demonstrate no acute or aggressive osseous abnormality. OTHER: No other abnormality. IMPRESSION: No evidence of an acute abnormality of the abdomen and pelvis. Mildly prominent retroperitoneal lymph nodes are slightly smallercompared with the prior CT examination and prostate PET. Unchanged mild aneurysmal dilation of the abdominal aorta 3.8 cm. Hepatic steatosis. Right adrenal myelolipoma. Small sliding hiatal hernia. THIS IS AN ELECTRONICALLY VERIFIED FINAL REPORT 08/09/2024 4:27 PM - Electronically signed by Edgardo Dominguez M.D. CH: Report ID: [id number] Reading Location: [id number] Taran Wall MD IMG CT PROCEDURES Final Resul t * DIABETES EYE EXAM (12/02/2023) SCRIBED DIABETIC DILATED EYE EXAM Normal Historical Provider HEALTH MAINTENANCE Final Result * COLONOSCOPY (08/28/2023 10:26 AM REAL ESTATE CLOSER) Anatomical Region Laterality Modality Other Narrative Procedure Note Glenn Go, DO - 08/28/2023 10:26 AM CST [facility] GI ENDOSCOPY Patient Name: Glenn Galo Procedure Date: 08/28/2023 10:26 AM Date of : 1945 Admit Type: Outpatient Age: 78 Gender: Male Attending MD: Glenn Go D.O. Room: [facility] ENDOSCOPY ROOM 05 Note Status: Finalized Procedure: Colonoscopy Indications: Screening for colorectal malignant neoplasm Referring MD: Jung Hillman M.D. Providers: Glenn Go D.O. Medicines: See the Anesthesia note for documentation of the administered medications Complications: No immediate complications. Estimated Blood Loss: Estimated blood loss: none. Procedure: The benefits, risks and alternatives of theprocedure and sedation were discussed and informed consentwas obtained. All questions were answered. Please referto the signed informed consent document in the medical record. The scope was passed under direct vision.The PCF-H180AL colonoscope was introduced through theanus and advanced to the cecum, identified byappendiceal orifice and ileocecal valve. The colonoscopy was performed without difficulty. The patient tolerated the procedure well. The quality of the bowel preparation was good. Prep was administered in asplit dose. Findings: The entire examined colon appeared normal on direct and retroflexion views. Impression: - The entire examined colon is normal on direct and retroflexion views. - No specimens collected. Recommendation: - Patient has a contact number available for emergencies. The signs and symptoms of potential delayed complications were discussed with thepatient. Return to normal activities tomorrow. Written discharge instructions were provided to thepatient. - Resume previous diet. - Continue present medications. - Repeat colonoscopy in 10 years forsurveillance. Glenn Go D.O. 08/28/2023 11:09:16 AM Number of Addenda: 0 Note Initiated On: 08/28/2023 10:26 AM Recognized by the [employer] [employer] for promoting quality in endoscopy us Glenn Go DO ENDOSCOPY PROCEDURES Fin al Result from Last 3 Months or Most Recently Relevant to Health Maintenance Insurance [facility] Member Subscriber Plan / Payer (Ef fective 2017-Present) Name:GLENN GALO Relation to Subscriber:Self Name:Onur Glenn Leydi Payer ID:[id number] (NAIC) Type:MEDICARE RISK OTHER Address: [place] [id number] Member Subscriber Plan / Payer (Ef fective 2019-Present) Name:Glenn Galo Relation to Subscriber:Self Name:Onur Glenn Leydi Payer ID:[id number] (NAIC) Type:MEDICARE RISK OTHER Address: [place] [id number] [facility] Advance Directives For more information, please contact: [phone] Documents on File Type Date Recorded Patient Triage Licensed Practical Nurse Expl anation ADVANCE DIRECTIVE 12/06/2020 ADVANCE DIRECTIVE 10/13/2020 Care Teams Bus Boy Relationship Specialty Start Date End Date Jung Hillman MD [facility] [address] [place] [address] PCP - General Family Medicine 06/23/25 Darrell Marroquin MD [address] [facility] [address] Consulting Physician Pain Management 12/05/22
--- OUTSIDE RECORDS SUMMARY | 2025-08-04 10:35 | XMS_ITS ---
Author Organization 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 Assessment & Plan (10/06/2019 3:06 PM ADVENTURE THERAPIST): status post (s/p) trab right eye (OD)- intraocular pressure (IOP) stable off all medications Bleb yokasta negative Follows with local slip bridge operator [id number] for IOP checks between our annual visits Assessment & Plan (07/29/2018 2:25 PM ADVENTURE THERAPIST): status post (s/p) trab right eye (OD)- [...] me Assessment & Plan (08/18/2018 2:06 PM ADVENTURE THERAPIST): Mild edema Trial of Olena 128 thru am prn Confocal 6 mos AM appt in 6mos Assessment & Plan (07/29/2018 2:24 PM ADVENTURE THERAPIST): 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 Past Treatment and Therapy Plans No past plan information found. Lifetime Dose Tracking * Chemical Lifetime Dose Automatic Entry Manual Entr y Fluoro Time 1.3 minutes 1.3 minutes 0 minutes Air kerma at the reference point (Ka,r) 55.1 mGy 5 5.1 mGy 0 mGy Resolved Problems Problem Noted Date Diagnosed Date Resolved Date Change in bowel habit 07/03/20232023 Radicular leg pain 08/01/2022 Medicare annual wellness visit, subsequent 12/06/2020 12/12/2022 Type 2 diabetes mellitus wit hout complication, without long-term current use of insulin 12/06/2020 06/24/2024 Exposure to potentially hazardous body fluids 08/30/20 20 04/18/2022 Chronic allergic conjunctivitis 05/24/2010 12/15/2023
--- OUTSIDE RECORDS SUMMARY | 2025-08-04 10:35 | XMS_ITS | Encounter Summary ---
Author Organization [facility] Address [address] [place] [address] Care Team Providers Care Manager Change Name Role Phone Darrell Marroquin MD Unavailable Jung Hillman MD Primary Care Provider [phone] Encounter Details Date Type Department Care Team (Late st Contact Info) Description 06/28/2025 Results Follow-Up [facility] Family Medicine at [address] [place] [address] [id number] Hemoglobin A1c, Comprehensive metabolic panel, CBC with auto differential, Additional followed-up results: 2 Social History Tobacco Use Types Packs/Day Years Used Date Smoking Tobacco: Former Cigarettes 1 45 Pipe Quit: 04/04/20 22 Smokeless Tobacco: Never Alcohol Use Standard Drinks/Week Comments Never 0 [...] on file 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 Gender Identity Male 01/02/2020 11:06 PM CDT Sexual Orientation Straight 01/02/2020 11 :06 PM CDT documented as of this encounter Functional Status * Question Answer Date of Assessment Author One or more falls in the last year 0 2024 1:32 PM CDT Ananya Gibson MA * BP Location Answer Date of Assessment Author Left arm 06/29/2025 2:42 PM CDT Vinh Gibson MA * BP Location Answer Date of Assessment Author Left arm 06/29/2025 2:42 PM CDT Vinh Gibson MA documented as of this encounter Plan of Treatment Not on file documented as of this encounter Goals Goal Patient Goal Type Associated Problems Recent Progress Patient-Stated? Author Diabetes Goal - Patient verbalizes knowledge and ability to manage diabetes ACO Care Management Emeli Rodriguez CDE Note: Problem: Knowledge deficit - Diabetes [...] patient and take next steps in plan. documented as of this encounter Visit Diagnoses Not on filedocumented in this encounter Care Teams Manager Change Relationship Specialty Start Date End Date Jung Hillman MD [address] [facility] [address] [address] PCP - General Family Medicine 06/23/25 Darrell Marroquin MD [address] [facility], [address] [address] Consulting Physician Pain Management 12/05/22 documented as of this encounter
--- OUTSIDE RECORDS SUMMARY | 2025-08-04 10:35 | XMS_ITS | Encounter Summary ---
Author Organization [facility] Address [address] [place] [address] Care Team Providers Care Crepe Sole Scourer Name Role Phone Miguel Mccord MD Primary Care Provider [phone] Darrell Marroquin MD Unavailable Emeli Marin CDE Unavailable [phone] Jung Hillman MD Primary Care Provider [phone] Encounter Details Date Type Department Care Team (Late st Contact Info) Description 02/11/2020 Telephone [facility] ([facility]) [address] [place] [id number] [address]que[address], [place] Social History Tobacco Use Types Packs/Day Years Used Date Smoking Tobacco: Former Sex and Gender Information Value Date Recorded Sex Assigned at Not on file 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 Gender Identity Male 01/02/2020 11:06 PM CDT Sexual Orientation Straight 01/02/2020 11 :06 PM CDT documented as of this encounter Plan of Treatment Not on file documented as of this encounter Visit Diagnoses Not on filedocumented in this encounter Care Teams Crepe Sole Scourer Relationship Specialty Start Date End Date Miguel Mccord MD [address] [place] [id number] PCP - General 07/23/17 08/29/20 Jung Hillman MD [facility] [address] [place] [address] PCP - General Family Medicine 06/23/25 Darrell Marroquin MD [address] [facility], [facility] [address] [place] [address] Consulting Physician Pain Management 12/05/22 Emeli Marin, ROSEMARY [address] [place] [address] Repair Service Dispatcher 02/27/23 06/23/24 documented as of this encounter
--- OUTSIDE RECORDS SUMMARY | 2025-08-04 10:35 | XMS_ITS | Clinical Summary ---
Author Organization [facility] Address [address] [place] [address] Care Team Providers Care Customer Assistance Associate Name Role Phone Jung Hillman MD Primary Care Provider [phone] Social History Tobacco Use Types Packs/Day Years Used Date Smoking Tobacco: Never Assessed Sex and Gender Information Value Date Recorded Sex Assigned at Not on file Legal Sex Male 5:44 PM CDT Gender Identity Not on file Sexual Orientation Not on file Plan of Treatment Health Maintenance Due Date Last Done Comments Hepatitis C 1965 DTaP, Tdap and Td Vaccines (1 - Tdap) 1966 Zoster Vaccines (1 of 2) 1997 Annual Medicare Wellness Visit 2012 RSV Immunization or 60+ Years (1 - 1-dose 75+ series) 2022 COVID-19 Vaccine ( season) 2025 06/24/2023, 06/27/2021, 12/05/2020, Additional history exists Influenza Adult (#1) 2025 06/22/2019 Pneumococcal Vaccine: 50+ Years Completed 07/23/2019, 07/16/2018 Hepatitis A Vaccines Aged Out No long er eligible based on patient's age to complete this topic Meningococcal B Vaccine Aged Out No l onger eligible based on patient's age to complete this topic Meningococcal Vaccine Aged Out No mis mariama eligible based on patient's age to complete this topic RSV Immunizations Under 20 Months Aged Out No longer eligible based on patient's age to complete this topic Insurance [employer] Care Teams Customer Assistance Associate Relationship Specialty Start Date End Date Jung Hillman MD [address] [address] PCP - General FAMILY PRACTICE 02/26/24
--- NOTE | 2025-08-04 10:52 | ECG_ITS ---
Test Date: 2025-08-04 11:05:10 Measurements Intervals [place] Rate: 34 P: 88 SC: 224 QRS: 10 QRSD: 132 T: -8 QT: 431 QTc: 324 Interpretive Statements SINUS RHYTHM WITH OCCASIONAL PREMATURE ATRIAL CONTRACTIONS RIGHT BUNDLE BRANCH BLOCK [120+ ms QRS DURATION, UPRIGHT V1, 40+ ms S IN I/aVL/V4/V5/V6] WARNING: DATA QUALITY MAY AFFECT INTERPRETATION No previous ECG available for comparison Electronically Signed On 08-04-2025 12:34:40 FOLDING MACHINE TENDER by Randal Mcrae M.D.
[2025-08-04 11:16] LABS: Hematocrit 35.3 % (42.0-52.0); Hemoglobin 11.4 g/dL (14.0-18.0); Immature Granulocyte Percent A 0.4 % (0-0.5); Lymphocytes Absolute Auto 1.16 K/mm3 (0.9-3.2); Mean Corpuscular HGB Conc 32.3 g/dl (32-36); Mean Corpuscular Hemoglobin 29.3 pg (26-34); Mean Corpuscular Volume 90.7 fl (80-100); Nucleated Red Blood Cells Absolute Auto 0.000 K/mm3 (0.0-0.012); Nucleated Red Blood Cells Perc 0.0 % (0.0-0.2); Platelet Count Result 243 k/mm3 (150-375); Red Blood Count 3.89 M/mm3 (4.6-6.20); White Blood Count 7.0 K/mm3 (4.5-10.0)
[2025-08-04 11:25] LABS: Hemoglobin A1C 7.8 % (<5.7)
[2025-08-04 11:37] LABS: Albumin Level 4.5 g/dL (3.5-5.1)
[2025-08-04 11:50] LABS: Anion Gap 11 mmol/L (4-12); Blood Urea Nitrogen 16 mg/dL (9-20); Calcium 9.9 mg/dL (8.4-10.2); Carbon Dioxide 26 mmol/L (22-30); Chloride 98 mmol/L (98-107); Estimated Glomerular Filt Rate > 60; Glucose 171 mg/dL (65-110); Potassium 4.3 mmol/L (3.4-5.0); Sodium 135 mmol/L (137-145)
[2025-08-04 12:29] LABS: MRSA (PCR) NOT DETECTED (NOT DETECTE)
== END 2025-08-04 09:50 | disposition home or self-care (01) ==
LOC: ANHSURGERY 09:53
PROVIDERS: Anesthesiology; PCP Family Medicine; Visit Provider Orthopaedic Surgery
DX: M16.11 Unilateral primary osteoarthritis, right hip (principal); E11.9 Type 2 diabetes mellitus without complications; Z79.899 Other long term (current) drug therapy; Z01.818 Encounter for other preprocedural examination
CPT/HCPCS: 36415; 80048; 80307; 82040; 83036; 85025; 87641; 93005

== ENCOUNTER 2025-08-30 16:14 | Observation (INO) | payer OTHER, SELFPAY ==
[2025-08-04 10:08] VITALS: BP 183/73; PULSE 67; RESP 16; TEMP 36.9; O2SAT 98; BMI 31.4
--- NOTE | 2025-08-04 10:35 | PC.NURSE ---
Addendum entered by Maria A Amaro RN 08/04/25 10:47: Pt aware to FU w PCP regarding Elevated BP, pt will log it till next week and record and take w him to appt. States its been running high recently with all going on JRRN Original Note: [facility] has started construction of its new state of the art ER which will open Spring 2026. With this, we anticipate parking may be a challenge for some our surgical patients and families. Parking spaces are limited but are available for all Surgical, obstetrics, and ER patients sharing this lot. If you arrive and find you are having a hard time finding a parking space, please note that we understand the challenges, please drive around the hospital and park near Hospital Entrance 1. When you enter this entrance, you can ask a volunteer to direct or take you back to the surgical waiting area to check in. We appreciate everyone?s understanding of these expected challenges while we build for your future. Report to the Outpatient Waiting Room, entrance under the green pavilion located off [address], at time _1100am on date ___08/29/25____. Planned Procedure Time: __1:00pm .? Time changes happen often and if your time is changed the preop area will call you the afternoon before. - You and your visitor will be asked to self-screen and do not enter if you have any COVID symptoms. Please call surgeon if you need to reschedule. - A mask is optional within the hospital at this time. Patients may have clear liquids (water, carbonated beverages, clear teas, apple juice) until 3 hours prior to surgery with a maximum of 20 ounces. - No food from midnight until time of surgery and no smoking, or chewing tobacco (or any form of nicotine). No chewing gum, candy or mints. (10:00am) Take only the following medications with a SIP of water on the morning of surgery: ____Pregabalin and Amlodipine DO NOT STOP ANY OF YOUR OTHER PRESCRIPTION MEDICATIONS PRIOR TO SURGERY EXCEPT THE FOLLOWING Hold all vitamins and supplements for 3 days per anesthesiologist. Medications to discontinue per physician ___Aspirin and NSAIDS for [address] Ackerman Date to take last dose 08/23/25 Please no make-up, nail lebanese, hairspray, perfume, deodorant, or body powder the day of surgery.? No jewelry (including any body piercings) or valuables the day of surgery, leave them at home.? Please take a shower or bath the night before, or the morning of, surgery with an antibacterial soap DIAL .? Wear comfortable, loose fitting clothing.? Bring overnight bag and walker, tennis shoes - Jewelry must be removed prior to entering the operating room.? Rings and piercings that are not removed may be cut off. - The hospital will not accept responsibility for valuables.? - Please leave all valuables, including medications, at home the day of surgery. If you are going home after surgery, a licensed otr hazmat company driver must drive you home.? - NO public transportation without another adult if you receive anesthesia. - We recommend that an adult stay with you for 24 hours following discharge. - We also recommend that you do not drive, make important decision, drink alcoholic beverages, or take any drugs that were not prescribed by your health care provider for at least 24 hours after your discharge time. Follow any additional instructions given to you from your surgeon. Telephone instructions given to __Patient and and asked if any additional questions and then verbalized understanding. Patient advised to call surgeon office or pre surgery nurse liaison [phone] if any additional questions.
--- NOTE | 2025-08-25 07:11 | PM.IMHP2 ---
H&P: HPI History of Present Illness Date/Time: 08/25/25 07:11 Chief Complaint: Patient has hip pain right. He has pain with any manipulation of the hip. The pain is in the groin and thigh. It is worse with activity somewhat relieved by rest. He has failed conservative treatment like to consider hip replacement surgery at this time Review of Systems Musculoskeletal: Musculoskeletal: Reports arthralgias and Reports stiffness Neurologic: Reports abnormal gait [facility] Past Medical History Medical History Prostate cancer Surgical History Surgical History No pertinent past surgical history Family History Family History (Updated 07/21/25 @ 11:33 by Shelbi Sparks CMA) Mother Family history non-contributory Grandparent Cerebrovascular accident Father Heart disease Social History Social History (Updated 07/21/25 @ 11:33 by Shelbi Sparks CMA) Smoking status: Never smoker Tobacco type: cigarettes Alcohol intake: never Substance use: never Lack of Transportation: No Lack of Food: Never True Current Housing: I Have Housing Concerned About Future Housing: No Difficulty Paying Gas/Electric Bills: No Difficulty Paying for Meds: No Currently Unemployed: No Education: Bachelor's Degree Difficulty w/ Childcare or Family Care: No Living arrangements: incarcerated Occupation/Education: retired Gender identity (if verbalized by the patient): Male Sexual Orientation (if Verbalized by the Patient): Straight or Heterosexual Spiritual care concerns: No Meds Home Medications and Allergies Home Medications ?Medication ?Instructions ?Recorded ?Confirmed ?Type Xantdi 80 mg PO DAILY 05/20/23 08/04/25 History amlodipine 2.5 mg tablet 2.5 mg PO DAILY 05/20/23 08/04/25 History indapamide 1.25 mg tablet 1.25 mg PO DAILY 05/20/23 08/04/25 History lisinopril 40 mg tablet 40 mg PO DAILY 05/20/23 08/04/25 History omeprazole 20 mg capsule,delayed 20 mg PO DAILY 05/20/23 08/04/25 History release aspirin 81 mg tablet 81 mg PO DAILY 07/21/25 08/04/25 History cholecalciferol (vitamin D3) 25 25 mcg PO DAILY 07/21/25 08/04/25 History mcg (1,000 unit) capsule metformin 500 mg tablet,extended 1,000 mg PO QPM 07/21/25 08/04/25 History release 24 hr simvastatin 40 mg tablet 20 mg PO QPM 07/21/25 08/04/25 History cholecalciferol (vitamin D3) 25 25 mcg PO DAILY 08/04/25 08/04/25 History mcg (1,000 unit) capsule (Vitamin D3) insulin glargine 100 unit/mL (3 40 unit subcut QPM 08/08/25 History mL) subcutaneous pen (Lantus Solostar U-100 Insulin) Allergies Allergy/AdvReac Type Severity Reaction Status Date / Time No Known Allergies Allergy Verified 08/04/25 10:01 Exam Narrative: On exam he has internal rotation is 0 external rotation of 30 is a positive Stinchfield test he has grinding crepitus and pain with manipulation. He walks with an antalgic gait. Neurologically he is intact. Eyes: General: appearance normal, both eyes and all related structures Neck: Neck: supple Resp: Effort & Inspection: normal respiratory effort Cardio: Rate: regular rate Rhythm: regular rhythm Radiology Reports: Comments: [facility] [address] [place] [address] [address] [place] [address] Sebastian Ackerman M.D. XRay Report Ambulatory Signed Patient: Dung Mohr 07/21/25 07:10 XR hip RT 2V w AP pelvis Routine Interpretation: AP and lateral the right hip with the pelvis she demonstrates moderately severe degenerative changes of the RIGHT hip. No fracture, lesions, or masses are appreciated. Hip/Pelvis X-Ray 07/21/25 Knee X-Ray 10/21/24 Shoulder X-Ray 10/21/24 Orthopedics Result Report 07/21/25 Assessment and Plan Assessment and plan (1) Osteoarthritis of right hip: Code(s): M16.11 - Unilateral primary osteoarthritis, right hip Status: Acute Assessment and Plan: Patient has an arthritic right hip. He has failed conservative treatment. He would like to consider hip replacement surgery. I discussed the risks, benefits, limitations, and alternatives with the patient in detail. He understands and agrees would like to proceed will proceed with total hip arthroplasty on the right.
[2025-08-29] VITALS (13 sets, daily range): BP systolic 133–216; BP diastolic 67–96; PULSE 66–112; RESP 12–22; TEMP 36.3–36.9; O2SAT 93–100
--- OUTSIDE RECORDS SUMMARY | 2025-08-29 00:49 | XMS_ITS ---
Author Organization 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 Assessment & Plan (10/06/2019 3:06 PM BROWN STOCK WASHER): status post (s/p) trab right eye (OD)- intraocular pressure (IOP) stable off all medications Bleb yokasta negative Follows with local construction economist [id number] for IOP checks between our annual visits Assessment & Plan (07/29/2018 2:25 PM BROWN STOCK WASHER): status post (s/p) trab right eye (OD)- [...] me Assessment & Plan (08/18/2018 2:06 PM BROWN STOCK WASHER): Mild edema Trial of Olena 128 thru am prn Confocal 6 mos AM appt in 6mos Assessment & Plan (07/29/2018 2:24 PM BROWN STOCK WASHER): Central graft clear Ischemic optic neuropathy of [...]
--- OUTSIDE RECORDS SUMMARY | 2025-08-29 00:49 | XMS_ITS | Encounter Summary ---
Author Organization [facility] Address [address] [place] [address] Care Team Providers Care E Commerce Analyst Name Role Phone Darrell Marroquin MD Unavailable Jung Hillman MD Primary Care Provider [phone] Encounter Details Date Type Department Care Team (Late st Contact Info) Description 08/07/2025 Results Follow-Up [facility] Family Medicine at [address] [place] [address] [address] [place], [place] [id number] XR Chest PA Lateral 2 Views, Transthoracic Echo (TTE) Complete W Doppler/CF, 24 HR Holter Monitor Social History Tobacco Use Types Packs/Day Years [...] points, staff should administer the PHQ-9) 0 08/05/2025 Personal Safety Answer Date Recorded Have you ever been in or are you currently in a harmful physical or emotional relationship or is someone making you feel afraid or unsafe? Denies 08/28/2023 Sex and Gender Information Value Date Recorded Sex Assigned at Not on file Legal Sex Male 3:15 AM READING PROFESSOR Gender Identity Male 01/02/2020 11:06 PM CDT Sexual Orientation Straight 01/02/2020 11 :06 PM CDT documented as of this encounter Miscellaneous Notes * Result Encounter Note - Davis Gomez - 08/16/2025 12:07 PM CST Appointment scheduled 08/22/2025 ING PROFESSOR documented in this encounter Plan of Treatment Not on [...] adhere to diet guidelines [facility] Care Management Eemli Rodriguez CDE Note: Problem: Knowledge deficit- Diabetic Diet [...] on filedocumented in this encounter Care Teams E Commerce Analyst Relationship Specialty Start Date End Date Jung Hillman MD [address] [place] [address] PCP - General Family Medicine 06/23/25 Darrell Marroquin MD [address] [facility] [address] Consulting Physician Pain Management 12/05/22 documented as of this encounter
--- OUTSIDE RECORDS SUMMARY | 2025-08-29 00:49 | XMS_ITS | Clinical Summary ---
Author Organization [facility] Address [address] [place] [address] Care Team Providers Care Department Of Mathematics Chair Name Role Phone Jung Hillman MD Primary Care Provider [phone] Social History Tobacco Use Types Packs/Day Years [...] complete this topic Insurance [employer] Care Teams Department Of Mathematics Chair Relationship Specialty Start Date End Date Jung Hillman MD [address] [address] PCP - General FAMILY PRACTICE 02/26/24
--- OUTSIDE RECORDS SUMMARY | 2025-08-29 00:49 | XMS_ITS | Clinical Summary ---
Author Organization [facility] Address [address] [place] [address] Care Team Providers Care Rn Medication Name Role Phone Darrell Marroquin MD Unavailable Jung Hillman MD Primary Care Provider [phone] Allergies No known active allergies Medications RESTASIS [...] drop into both eyes daily 2023 Active blood glucose diagnostic (glucose blood) stripIndications:Type 2 diabetes mellitus with hyperglycemia, with long-term current use of insulin (HCC),Pure hypercholesterolemia,E ssential hypertension Use once daily to test blood sugars 100 each 11/03 Active lancets 33 gauge miscIndications:Type 2 diabetes mellitus with hyperglycemia, with long-term current use of insulin (HCC),Pure hypercholesterolemia,E ssential hypertension Use to test blood sugar daily 100 each 2024 Active pregabalin (LYRICA) 100 mg capsule Take 1 capsule (100 mg total) by mouth daily Active insulin glargine (LANTUS) 100 unit/mL (3 mL) pen for injection INJECT 40 UNITS UNDER THE SKIN NIGHTLY 30 mL 2 2024 Active simvastatin (ZOCOR) 40 mg tabletIndications:Pure hypercholesterolemia Take 1 tablet (40 mg total) by mouth daily 90 tablet 2 2024 Active Additional Information Patient taking differently: 20 mgoral Daily, Reported on 08/05/2025 indapamide (LOZOL) 1.25 mg tablet Take 1 [...] with long-term current use of insulin (HCC) TAKE 2 TABLETS BY MOUTH TWICE A DAY 360 tablet 1 2024 Active pen needle, diabetic (BD Ultra-Fine Short Pen Needle) 31 gauge x 5/16 needle USE TO INJECT ONCE DAILY DIRECTED 100 each 1 2024 Active HumaLOG 100 unit/mL pen for injection Inject 6 units for blood sugar readings over 200. Maximum 18 units per day. PRN for procedures. 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 Assessment & Plan (10/06/2019 3:06 PM RATING CLERK): status post (s/p) trab right eye (OD)- intraocular pressure (IOP) stable off all medications Bleb yokasta negative Follows with local [id number] for IOP checks between our annual visits Assessment & Plan (07/29/2018 2:25 PM RATING CLERK): status post (s/p) trab right eye (OD)- [...] me Assessment & Plan (08/18/2018 2:06 PM RATING CLERK): Mild edema Trial of Olena 128 thru am prn Confocal 6 mos AM appt in 6mos Assessment & Plan (07/29/2018 2:24 PM RATING CLERK): Central graft clear Ischemic optic neuropathy of [...] 06/24/2024 Exposure to potentially hazardous body fluids 08/30/2004/18/2022 Chronic allergic conjunctivitis 05/24/2010 12/15/2023 Encounters Date Type Department Care Team Description 08/17/2025 Telephone [facility] Family Medicine at [address] [place] [address] Jung Hillman MD Medical Records Request 08/12/2025 Results Follow-Up [facility] Family Medicine at [address] [place] [phone] Jaqui Fischer PA Thyroid Function [facility] 08/10/2025 1:45 PM RATING CLERK - 08/10/2025 11:59 PM RATING CLERK Hospital Encounter [facility] Cardiac Testing [address] [place] [id number] Bradycardia; SOB (shortness of breath) Discharge Disposition: Discharge to home or self care 08/10/2025 1:44 PM RATING CLERK - 08/10/2025 11:59 PM RATING CLERK Hospital Encounter [facility] Cardiac Testing [address] [place] [phone] Bradycardia; SOB (shortness of breath) Discharge Disposition: Discharge to home or self care 08/09/2025 Telephone [facility] Medical [facility] Family Medicine at [address] [phone] Jaqui Fischer PA 08/08/2025 Orders Only [facility] Medical [facility] Family Medicine at [address] [phone] Jung Hillman MD 08/07/2025 Results Follow-Up [facility] Medical [facility] Family Medicine at [address] [phone] Jaqui Fischer PA XR Chest PA Lateral 2 Views, Transthoracic Echo (TTE) Complete W Doppler/CF, 24 HR Holter Monitor 08/05/2025 11:20 AM RATING CLERK - 08/05/2025 11:59 PM RATING CLERK Hospital Encounter [facility] Di[facility] Imaging [address] [place] [phone] SOB (shortness of breath) Discharge Disposition: Discharge to home or self care 08/05/2025 10:15 AM RATING CLERK Office Visit [facility] Medical [facility] Family Medicine at [address] [phone] Van Bevern, Jaqui A., PA Primary osteoarthritis of right hip (Primary Dx); Bradycardia; SOB (shortness of breath); Type 2 diabetes mellitus with hyperglycemia, with long-term current use of insulin (HCC); Gastroesophageal reflux disease without esophagitis; Pure hypercholesterolemia; Essential hypertension; Prostate cancer (HCC); 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); Obesity (BMI 30-39.9) 08/04/2025 Telephone [facility] Family Medicine at [address] [phone] Jung Hillman MD Abnormal BP and HR 07/14/2025 Telephone [facility] at [address] [phone] Jung Hillman MD Referral Request 06/29/2025 2:30 PM CDT Office Visit [facility] at [address] [phone] Jung Hillman MD Medicare annual wellness visit, subsequent (Primary Dx); Essential hypertension; Type 2 diabetes mellitus with hyperglycemia, with long-term current use of insulin (HCC); Pure hypercholesterolemia; Gastroesophageal reflux disease without esophagitis; Chronic bilateral low back pain with bilateral sciatica; Prostate cancer (HCC) 06/28/2025 Results Follow-Up [facility] at [address] [phone] Jaqui Fischer PA Hemoglobin A1c, Comprehensive metabolic panel, CBC with auto differential, Additional followed-up results: 2 06/21/2025 Telephone [facility] at [address] [phone] Jung Hillman MD Referral Request from Last 3 Months Immunizations Immunization Administration Dates Next Due Influenza, Quad, Adjuvantate d, Intramuscular 05/28/2022,05/23/2021 Influenza, Quadrivalent, Hig h Dose, Preservative Free, Intrr 06/24/2023,06/09/2020 Influenza, Trivalent, High D ose, Split, Preservative Free, Intramuscular 07/01/2024 Influenza, Unspecified 08/03/2025,06/22/2019 Pfizer SARS-CoV-2 Monovalent Vaccination (12+ Yrs) PURPLE [...] on file Legal Sex Male 3:15 AM RATING CLERK Gender Identity Male 01/02/2020 11:06 PM CDT Sexual Orientation Straight 01/02/2020 11 :06 PM CDT Last Filed Vital Signs Vital Sign Reading Time Taken Comments Blood Pressure 138/64 08/05/2025 10:44 AM RATING CLERK Pulse 59 08/05/2025 10:44 AM RATING CLERK Temperature 36.6 C (97.9 F) 08/05/2025 10:44 AM RATING CLERK Respiratory Rate 18 08/28/2023 11:4 5 AM RATING CLERK Oxygen Saturation 96% 08/05/2025 10: 44 AM RATING CLERK Inhaled Oxygen Concentration - - Weight 100.5 kg (221 lb 9.6 oz) 025 10:44 AM RATING CLERK Height 180.3 cm (5' 11) 08/05/2025 10: 44 AM RATING CLERK Body Mass Index 30.91 08/05/2025 10:44 AM RATING CLERK Plan of Treatment Health Maintenance Due Date Last Done Comments Hepatitis C Screening 1945 DTaP/Tdap/Td Vaccine (1 - Tdap) 1958 Hepatitis B Screening 1965 Zoster Vaccine (1 of 2) 1966 Lung Cancer Screening 1997 Dilated Eye Exam 12/01/2024 12/02/2023, , 07/10/2022, Additional history exists Albumin Creatinine Ratio, Urine 10/29/2025 , 10/06/2023 Hemoglobin A1C 12/26/2025 06/27/2025, 04/22, 10/29/2024, Additional history exists Lipid Panel 06/27/2026 06/27/2025, 04/22, 10/29/2024, Additional history exists eGFR 06/27/2026 06/27/2025, 04/22, 10/29/2024, Additional history exists Foot Exam 06/29/2026 06/29/2025, 04/22, 06/16/2023, Additional history exists Well Visit 65+ 06/29/2026 06/29/2025, 1011/2023, 06/16/2023, Additional history exists Depression Screening 08/05/2026 08/05/2025, 06/29/2025, 05/10/2025, Additional history exists Fall Risk Assessment 08/05/2026 08/05/2025, 06/29/2025, 06/24/2024, Additional history exists Colon Cancer Screening-CT Colonography [...] Completed 08/09/2024, 09/25/2023, 06/16/2023, Additional history exists Influenza Vaccine Completed 08/03/2025, , 06/24/2023, Additional history exists Goals Goal Patient Goal [...] diet guidelines ACO Care Management No Emeli Marin, ROSEMARY Note: Problem: Knowledge deficit- Diabetic Diet Interventions: [...] Procedure Name Priority Date/Time Associated Diagnosis Comments THYROID FUNCTION CASCADE Routine 08/11/2025 1:04 PM RATING CLERK Bradycardia Type 2 diabetes mellitus with hyperglycemia, with long-term current use of insulin (HCC) Obesity (BMI 30-39.9) TRANSTHORACIC ECHO (TTE) COMPLETE W DOPPLER/CF WO CONTRAST Routine 08/10/2025 3:04 PM RATING CLERK Bradycardia SOB (shortness of breath) HOLTER MONITOR 24 HR Routine 08/10/2025 1:51 PM RATING CLERK Bradycardia SOB (shortness of breath) XR CHEST PA LATERAL 2 VIEWS Schedule Routine, Read Routine (OP Routine) 08/05/2025 11:26 AM RATING CLERK SOB (shortness of breath) ECG 12-LEAD Routine 08/04/2025 PSA SCREEN Routine 06/27/2025 11:19 AM CDT Type 2 diabetes mellitus with hyperglycemia, with long-term current use of insulin (HCC) Essential hypertension Pure hypercholesterolemia LIPID PANEL Routine 06/27/2025 11:19 AM CDT Type 2 diabetes mellitus with hyperglycemia, with long-term current use of insulin ([facility]) Essential hypertension Pure hypercholesterolemia CBC WITH AUTO DIFFERENTIAL Routine 06/27/2025 11:19 AM CDT Type 2 diabetes mellitus with hyperglycemia, with long-term current use of insulin ([facility]) Essential hypertension Pure hypercholesterolemia COMPREHENSIVE METABOLIC PANEL Routine 06/27/2025 11:19 AM CDT Type 2 diabetes mellitus with hyperglycemia, with long-term current use of insulin ([facility]) Essential hypertension Pure hypercholesterolemia HEMOGLOBIN A1C Routine 06/27/2025 11:19 AM CDT Type 2 diabetes mellitus with hyperglycemia, with long-term current use of insulin ([facility]) Essential hypertension Pure hypercholesterolemia ALBUMIN CREATININE RATIO, URINE Routine 10/29/2024 1:38 PM RATING CLERK Type 2 diabetes mellitus with hyperglycemia, without long-term current use of insulin (HCC) CT ABDOMEN PELVIS W CONTRAST Schedule Routine, Read Routine (OP Routine) 08/09/2024 11:31 AM RATING CLERK Prostatic malignant neoplasm (HCC) DIABETES EYE EXAM Routine 12/02/2023 COLONOSCOPY 08/28/2023 10:26 AM RATING CLERK from Last 3 Months or Most Recently Relevant to Health Maintenance Results * Thyroid Function Aurora (08/11/2025 1:04 PM RATING CLERK) TSH 1.20 0.40 - 4.50 mIU/L [facility] Blood 08/11/2025 1:04 PM RATING CLERK 08/11/2025 1:05 PM RATING CLERK us Jaqui Moreira LAB BLOOD ORDERABLES [facility] Result [facility] [address] [place] [address] * TRANSTHORACIC ECHO (TTE) COMPLETE W DOPPLER/CF WO CONTRAST (08/10/2025 3:04 PM RATING CLERK) Estimated EF 55-60 % CONS SCIMAGE Anatomical Region Laterality Modality Ultrasound 08/10/2025 2:05 PM RATING CLERK Narrative 08/11/2025 11:42 AM RATING CLERK Transthoracic Echocardiographic Report Patient Name: GLENN GALO L : 1945 (80y 1m) Sex: M Study Date: 08/10/2025 02:05:15 PM Ht(Inch): 71 Wt(Lb): 221.01 BSA: 2.24 Program Project Analyst: Destinee Scruggs RDCS Order Provider: JAQUI FISCHER Heart Rate: 84 BMI: 30.82 BP: 138 / 64 Ref Provider: JAQUI FISCHER PROCEDURES: Echocardiographic Report: ([id number]) Transthoracic complete echo, 2D, spectral and tissue Doppler, color flow Doppler, M-mode. INDICATIONS: R00.1 Bradycardia, unspecified and R06.02 Shortness of breath. FINDINGS: Left Ventricle: Normal left ventricular cavity size. Concentric LV hypertrophy. Normal left ventricular systolic function. The Ejection Fraction is visually estimated to be 55-60 %. Diastolic Function E to A reversal Suggestive of abnormal relaxation during early diastole. Regional Wall Motion: no obvious regional wall motion abnormalities noted Right Ventricle: Normal right ventricular size. Normal right ventricular systolic function. Left Atrium: The left atrium is normal in size. Right Atrium: The right atrium is normal in size. Atrial Septum: No shunt by color Doppler. Mitral Valve: There is mild mitral valve regurgitation. Aortic Valve: Trileaflet aortic valve. No aortic regurgitation seen. No aortic valve stenosis. The mean transaortic gradient is 5 mmHg. The aortic valve area by the continuity equation (using VTI) is 2.57 cm2. Tricuspid Valve: There is mild tricuspid regurgitation. Pulmonic Valve: No evidence of pulmonic regurgitation. Pericardium: Normal pericardium without evidence of pericardial effusion. No pericardial effusion noted. Aorta: Normal aortic root. The aortic Sinus is normal in size. IVC: IVC is normal in size. CONCLUSIONS: 1. Normal left ventricular cavity size. Concentric LV hypertrophy. Normal left ventricular systolic function. The Ejection Fraction is visually estimated to be 55-60 %. Diastolic Function E to A reversal Suggestive of abnormal relaxation during early diastole. 2. Normal right ventricular size. Normal right ventricular systolic function. 3. There is mild mitral valve regurgitation. 4. There is mild tricuspid regurgitation. 5. Normal pericardium without evidence of pericardial effusion. No pericardial effusion noted. MEASUREMENTS: 2D/MM Value Range Doppler Value LVIDd 2D 4.78 cm [ 3.50 - 5.70 ] AV Peak Yunier 1.52 m/s LVIDs 2D 3.28 cm [ 3.10 - 4.60 ] AV Peak PG 9.24 mmHg IVSd 2D 1.44 cm [ 0.60 - 1.20 ] AV Mean PG 5.00 mmHg LVPWd 2D 1.70 cm [ 0.60 - 1.10 ] AV VTI 30.30 cm LV Thickness Ratio 0.85 LVOT Peak Yunier 1.17 m/s LV Mass 2D 326.56 g LVOT Peak PG 5.48 mmHg LV Mass Index 2D 145.72 g/m2 LVOT Mean PG 3.00 mmHg RWT 0.71 LVOT VTI 24.80 cm Visually Estimated EF 55-60 % LVOT Diam 2.00 cm LA Dimension 2D 4.00 cm [ 1.90 - 4.00 ] SV LVOT 78.00 cm3 LA Length 2C 2.88 cm SID VTI 2.57 cm2 LA Length 4C 3.62 cm SID Vmax 2.42 cm2 RVDd 2D 3.23 cm [ 2.00 - 3.00 ] LVOT/AV VTI 0.82 - Dimensionless index (DVI) TAPSE 2.77 cm [ 1.71 - 5.00 ] MV E Peak Yunier 0.84 m/s AoR Diam 2D 3.60 cm [ 2.00 - 3.70 ] MV A Peak Yunier 0.94 m/s Ao Root Index 1.61 cm/m2 [ 1.00 - 2.00 ] MV E/A 0.90 ratio MV Decel Time 246.00 msec Med E` Yunier 0.06 m/s Lat E` Yunier 0.06 m/s Average E/E` 14.00 RV S` 14.70 cm/sec TR Peak Yunier 2.95 m/s TR Peak PG 34.8 mmHg PV Peak Yunier 0.95 m/s PV Peak PG 3.61 mmHg - ATTESTATION: I have reviewed and interpreted the pertinent images and measurements of this study. I attest to the conclusions in the final report that is provided above. DISCLAIMER: The study images and the final report will be retained in the patient chart by the [facility] Laboratory for the legally required time period. This chart constitutes the legal record of any testing performed. Electronically Signed By: Kristin Holder MD 08/11/2025 11:42:21 AM RATING CLERK Procedure Note Kristin Holder MD - 08/11/2025 Transthoracic Echocardiographic Report Patient Name: GLENN GALO L : 1945 (80y 1m) Sex: M Study Date: 08/10/2025 02:05:15 PM Ht(Inch): 71 Wt(Lb): 221.01 BSA: 2.24 Program Project Analyst: Destinee Scruggs RDCS Order Provider: JAQUI FISCHER Heart Rate: 84 BMI: 30.82 BP: 138 / 64 Ref Provider: JAQUI FISCHER PROCEDURES: Echocardiographic Report: ([id number]) Transthoracic complete echo, 2D,spectral and tissue Doppler, color flow Doppler, M-mode. INDICATIONS: R00.1 Bradycardia, unspecified and R06.02 Shortness of breath. FINDINGS: Left Ventricle: Normal left ventricular cavity size. Concentric LVhypertrophy. Normal left ventricular systolic function. The Ejection Fraction is visuallyestimated to be 55-60 %. Diastolic Function E to A reversal Suggestive of abnormalrelaxation during early diastole. Regional Wall Motion: no obvious regional wall motion abnormalitiesnoted Right Ventricle: Normal right ventricular size. Normal right ventricularsystolic function. Left Atrium: The left atrium is normal in size. Right Atrium: The right atrium is normal in size. Atrial Septum: No shunt by color Doppler. Mitral Valve: There is mild mitral valve regurgitation. Aortic Valve: Trileaflet aortic valve. No aortic regurgitation seen. Noaortic valve stenosis. The mean transaortic gradient is 5 mmHg. The aortic valve areaby the continuity equation (using VTI) is 2.57 cm2. Tricuspid Valve: There is mild tricuspid regurgitation. Pulmonic Valve: No evidence of pulmonic regurgitation. Pericardium: Normal pericardium without evidence of pericardial effusion.No pericardial effusion noted. Aorta: Normal aortic root. The aortic Sinus is normal in size. IVC: IVC is normal in size. CONCLUSIONS: 1. Normal left ventricular cavity size. Concentric LV hypertrophy. Normalleft ventricular systolic function. The Ejection Fraction is visually estimatedto be 55-60 %. Diastolic Function E to A reversal Suggestive of abnormal relaxationduring early diastole. 2. Normal right ventricular size. Normal right ventricular systolicfunction. 3. There is mild mitral valve regurgitation. 4. There is mild tricuspid regurgitation. 5. Normal pericardium without evidence of pericardial effusion. Nopericardial effusion noted. MEASUREMENTS: 2D/MM Value Range DopplerValue LVIDd 2D 4.78 cm [ 3.50 - 5.70 ] AV Peak Vel1.52 m/s LVIDs 2D 3.28 cm [ 3.10 - 4.60 ] AV Peak PG9.24 mmHg IVSd 2D 1.44 cm [ 0.60 - 1.20 ] AV Mean PG5.00 mmHg LVPWd 2D 1.70 cm [ 0.60 - 1.10 ] AV VTI30.30 cm LV Thickness Ratio 0.85 LVOT Peak Vel1.17 m/s LV Mass 2D 326.56 g LVOT Peak PG5.48 mmHg LV Mass Index 2D 145.72 g/m2 LVOT Mean PG3.00 mmHg RWT 0.71 LVOT VTI24.80 cm Visually Estimated EF 55-60 % LVOT Diam2.00 cm LA Dimension 2D 4.00 cm [ 1.90 - 4.00 ] SV LVOT78.00 cm3 LA Length 2C 2.88 cm SID VTI2.57 cm2 LA Length 4C 3.62 cm SID Vmax2.42 cm2 RVDd 2D 3.23 cm [ 2.00 - 3.00 ] LVOT/AV VTI0.82 - Dimensionless index (DVI) TAPSE 2.77 cm [ 1.71 - 5.00 ] MV E Peak Vel0.84 m/s AoR Diam 2D 3.60 cm [ 2.00 - 3.70 ] MV A Peak Vel0.94 m/s Ao Root Index 1.61 cm/m2 [ 1.00 - 2.00 ] MV E/A0.90 ratio MV Decel Time 246.00 msec Med E` Yunier 0.06 m/s Lat E` Yunier 0.06 m/s Average E/E` 14.00 RV S` 14.70 cm/sec TR Peak Yunier 2.95 m/s TR Peak PG 34.8 mmHg PV Peak Yunier 0.95 m/s PV Peak PG 3.61 mmHg - ATTESTATION: I have reviewed and interpreted the pertinent images and measurements ofthis study. I attest to the conclusions in the final report that is provided above. DISCLAIMER: The study images and the final report will be retained in the patientchart by the [facility] for the legally required time period. This chart constitutesthe legal record of any testing performed. Electronically Signed By: Kristin Holder MD 08/11/2025 11:42:21 AM RATING CLERK us Jaqui Moreira CV ECHO PROCEDURES Final Result * 24 HR Holter Monitor (08/10/2025 1:51 PM RATING CLERK) Anatomical Region Laterality Modality Ultrasound Narrative 08/15/2025 3:43 PM RATING CLERK 24 hour Holter monitor. Indications. Dyspnea. Bradycardia. Interpretation. The basic rhythm is sinus with average daily heart rate 82. Slowest heart rate 44 sinus bradycardia. Fastest 147 which was SVT. Occasional single PVC were seen with total of 1676 throughout the recording. PVC burden 2%. Frequent premature supraventricular beats with a total of 7508 throughout the recording. SVC burden 8%. There were several supraventricular couplets. Several short runs of nonsustained SVT. Fastest SVT was 147 duration 5 beats. Episodes of inappropriate sinus tachycardia were seen. There was no V-tach. No atrial fibrillation or atrial flutter. No significant bradycardia. No symptoms. Conclusions. Normal sinus rhythm with occasional single PVCs. Frequent single premature supraventricular beats. Several supraventricular couplets. A few short runs of SVT. Longest episode 5 beats at a rate of 147 per minute. Episodes of inappropriate sinus tachycardia. Jaqui Moreira CV CARDIAC SERVICES PROC EDURES Final Result * XR Chest PA Lateral 2 Views (08/05/2025 11:26 AM RATING CLERK) Anatomical Region Laterality Modality Body, Chest N/A Computed Radiogr aphy 08/05/2025 7:28 PM RATING CLERK Impressions 08/05/2025 7:28 PM RATING CLERK No acute findings or infiltrate. Electronically signed by: Tyrese Cat M.D. Narrative 08/05/2025 7:28 PM RATING CLERK EXAMINATION: XR CHEST PA LATERAL 2 VIEWS HISTORY: shortness of breath TECHNIQUE: 2 view chest COMPARISON: No prior FINDINGS: Normal cardiomediastinal silhouette and pulmonary vasculature. No infiltrate or effusion. Calcified granuloma left lower chest. Moderate multilevel spondylosis thoracic spine. Procedure Note Tyrese Cat MD - 08/05/2025 EXAMINATION: XR CHEST PA LATERAL 2 VIEWS HISTORY: shortness of breath TECHNIQUE: 2 view chest COMPARISON: No prior FINDINGS: Normal cardiomediastinal silhouette and pulmonary vasculature. No infiltrate or effusion. Calcified granuloma left lower chest. Moderate multilevel spondylosis thoracic spine. IMPRESSION: No acute findings or infiltrate. Electronically signed by: Tyrese Cat M.D. Jaqui Moreira IMG XR PROCEDURES Final Result * ECG 12 lead (08/04/2025) Historical Provider ECG ORDERABLES Final Res ult * PSA screen (06/27/2025 11:19 AM CDT) PSA 0.04 < OR = 4.00 ng/mL [facility] Comment: The total PSA value from this assay system is standardized against the WHO standard. The test result will be approximately 20% lower when compared to the equimolar-standardized total PSA (Bran Enloe). Comparison of serial PSA results should be [...] ORDERABLES Final Re sult [facility] [address] [place] [address] * (ABNORMAL) CBC with auto differential (06/27/2025 [...] MCHC 31.9(L) 32.0 - 36.0 g/dL [facility] Comment: For adults, a slight decrease in the calculated MCHC value (in the range of 30 to 32 g/dL) is most likely not clinically significant; however, it should be interpreted with caution in correlation with other red cell parameters and the patient's clinical condition. Rdw 14.3 11.0 - 15.0 % [facility] Platelets 321 140 - 400 Thousand/u L [facility] MPV 10.3 7.5 - 12.5 fL [facility] Neutrophils, abs 4,828 1,500 - 7,800 cells/uL [facility] Lymphocytes, abs 1,519 850 - 3,900 cells/uL [facility] Monocyte abs 568 200 - 950 cells/uL [facility] Eosinophils, abs 163 15 - 500 cells/uL [facility] Basophils, abs 21 0 - 200 cells/uL [facility] Neutrophils 68 % [facility] Lymphocyte pct 21.4 % [facility] Monocytes 8.0 % [facility] Eosinophils 2.3 % [facility] Basophils 0.3 % [facility] Blood 06/27/2025 11:1 9 AM CDT 06/27/2025 11:19 AM CDT Narrative [facility] - 06/28/2025 6:14 AM CDT FASTING:YES FASTING: YES Jung Hillman MD LAB BLOOD ORDERABLES Final Re sult Performing Organization Address [facility] de Phone Number [facility] [address] [place] [address] * (ABNORMAL) Hemoglobin A1c (06/27/2025 11:19 AM [...] ORDERABLES Final Re sult Performing Organization Address [facility] Co de Phone Number [facility] [address] [place] [address] * (ABNORMAL) Lipid panel (06/27/2025 11:19 AM CDT) Cholesterol 166 <200 mg/dL [facility] CirqleCesar Foster HDL 47 > OR = 40 mg/dL [facility] BallesterosCesar Foster Triglycerides 201(H) <150 mg/dL Luisito BallesterosCesar Foster Comment: If a non-fasting specimen was collected, consider repeat triglyceride testing on a fasting specimen if clinically indicated. Mary et al. J. of Clin. Lipidol. 2015;9:129-169. LDL 89 mg/dL (calc) Luisito FavianCesar Foster Comment: Reference range: <100 Desirable range <100 mg/dL for primary prevention; <70 mg/dL for patients with CHD or diabetic patients with > or = 2 CHD risk factors. LDL-C is now calculated using the Sylvester calculation, which is a validated novel method providing better accuracy than the Friedewald equation in the estimation of LDL-C. Aaron SS et al. STEFAN. 2013;310(19): 8795-6849 (http://education.[employer]/faq/TBS833) Chol/HDL ratio 3.5 <5.0 (calc) Luisito FavianCesar Foster Non-HDL, (LDL+VLDL) 119 <130 mg/dL (calc) Luisito BallesterosCesar Foster Comment: For patients with diabetes plus 1 major ASCVD risk factor, treating to a non-HDL-C goal of <100 mg/dL (LDL-C of <70 mg/dL) is considered a therapeutic option. Blood 06/27/2025 11:1 9 AM CDT 06/27/2025 11:19 AM CDT Narrative [facility] - 06/28/2025 6:14 AM CDT FASTING:YES FASTING: YES us Jung Hillman MD LAB BLOOD ORDERABLES Final Re sult LUISITO Ladd [facility] [address] [place] [address] * (ABNORMAL) Comprehensive metabolic panel (06/27/2025 11:19 AM CDT) Glucose 124(H) 65 - 99 mg/dL Luisito FavianCesar Foster Comment: Fasting reference interval For someone without known diabetes, a glucose value between 100 and 125 mg/dL is consistent with prediabetes and should be confirmed with a follow-up test. BUN 16 7 - 25 mg/dL Luisito Alim InnovationsCaleb Foster Creatinine 0.75 0.70 - 1.28 mg/dL Luisito Alim InnovationsCaleb Foster eGFR 92 > OR = 60 mL/min/1.7 3m2 Luisito Alim InnovationsCaleb Foster BUN/creat ratio SEE NOTE: 6 - 22 (calc) Luisito Alim InnovationsCaleb Foster Comment: Not Reported: BUN and Creatinine are within reference range. Sodium 136 135 - 146 mmol/L Luisito Alim InnovationsCaleb Foster Potassium, pl 4.1 3.5 - 5.3 mmol/L CardozCaleb Foster Chloride 94(L) 98 - 110 mmol/L Luisito Alim InnovationsCaleb Foster CO2 29 20 - 32 mmol/L Luisito BallesterosOrlebar BrownCaleb Foster Calcium 10.2 8.6 - 10.3 mg/dL Luisito Alim InnovationsCaleb Foster Protein, sr 7.5 6.1 - 8.1 g/dL Luisito Alim InnovationsCaleb Foster Albumin 4.6 3.6 - 5.1 g/dL Luisito Alim InnovationsCaleb Foster GLOBULIN 2.9 1.9 - 3.7 g/dL (calc) Luisito Alim InnovationsCaleb Foster Alb/glob ratio 1.6 1.0 - 2.5 (calc) Luisito Alim InnovationsCaleb Foster Bilirubin, total 0.9 0.2 - 1.2 mg/dL Luisito Alim InnovationsCaleb Foster Alk phos 59 35 - 144 U/L Luisito Alim InnovationsCaleb Foster AST 13 10 - 35 U/L CardozCaleb Foster ALT (SGPT) 9 9 - 46 U/L CardozCaleb Foster Blood 06/27/2025 11:1 9 AM CDT 06/27/2025 11:19 AM CDT Narrative [facility] - 06/28/2025 6:14 AM CDT FASTING:YES FASTING: YES us Jung Hillman MD LAB BLOOD ORDERABLES Final Re sult [facility] [address] [place] [address] * (ABNORMAL) Albumin Creatinine Ratio, Urine (10/29/2024 1:38 PM RATING CLERK) Creatinine, ur 79 20 - 320 mg/dL [...] a diagnostic category. Urine 10/29/2024 1:38 PM RATING CLERK 10/29/2024 1:39 PM RATING CLERK Narrative [facility] - 10/30/2024 7:49 AM RATING CLERK FASTING:YES FASTING: YES Jung Hillman MD LAB URINE ORDERABLES Final Re sult [facility] [address] [place] [address] * CT Abdomen Pelvis W Contrast (08/09/2024 11:31 AM RATING CLERK) Anatomical Region Laterality Modality Body N/A Computed Tomogra phy 08/09/2024 4:16 PM RATING CLERK Narrative 08/09/2024 4:27 PM RATING CLERK EXAM DESCRIPTION: CT ABDOMEN PELVIS W CONTRAST [...] Electronically signed by Edgardo Dominguez M.D. CH: NAIVN Report ID: [id number] Reading Location: [place] [address] Procedure Note Edgardo Dominguez Jr., MD - [...] by Edgardo Dominguez M.D. CH: Report ID: [id number] Reading Location: [id number] Taran Wall MD IMG CT PROCEDURES Final Resul t * DIABETES EYE EXAM (12/02/2023) SCRIBED DIABETIC DILATED EYE EXAM Normal Historical Provider HEALTH MAINTENANCE Final Result * COLONOSCOPY (08/28/2023 10:26 AM RATING CLERK) Anatomical Region Laterality Modality Other Narrative Procedure Note Glenn Go, - 08/28/2023 10:26 AM CST [facility] GI ENDOSCOPY Patient Name: Glenn Galo Procedure Date: 08/28/2023 10:26 AM Date of : 1945 Admit Type: Outpatient Age: 78 Gender: Male Attending MD: Huma JeffriesO. Room: [facility] ENDOSCOPY ROOM 05 Note Status: Finalized Procedure: [...] On: 08/28/2023 10:26 AM Recognized by the [employer] for promoting quality in endoscopy Glenn Go DO ENDOSCOPY PROCEDURES Fin neil Result from Last 3 Months or Most Recently Relevant to Health Maintenance Insurance Advance Directives For more information, please contact: [phone] Documents on File Type Date Recorded Patient Emergency Worker Expl anation ADVANCE DIRECTIVE 12/06/2020 ADVANCE DIRECTIVE 10/13/2020 Care Teams Rn Medication Relationship Specialty Start Date End Date Jung Hillman MD [facility] [address] [address] PCP - General Family Medicine 06/23/25 Darrell Marroquin MD [address] [facility] [address] Consulting Physician Pain Management 12/05/22
--- OUTSIDE RECORDS SUMMARY | 2025-08-29 00:49 | XMS_ITS | Encounter Summary ---
Author Organization [facility] Healthcare Address [address] [place] [address] Care Team Providers Care Latex Dipper Name Role Phone Miguel Mccord MD Primary Care Provider [phone] Darrell Marroquin MD Unavailable Emeli Marin CDE Unavailable [phone] Jung Hillman MD Primary Care Provider [phone] Encounter Details Date Type Department Care Team (Late st Contact Info) Description 02/22/2020 Telephone [facility] ([facility]) [address] [place] [address] Sera Sequeira, RT Social History Tobacco Use Types Packs/Day Years Used Date Smoking Tobacco: Former Sex and Gender Information Value Date Recorded Sex Assigned at Not on file 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 Gender Identity Male 01/02/2020 11:06 PM CDT Sexual Orientation Straight 01/02/2020 11 :06 PM CDT documented as of this encounter Plan of Treatment Not on file documented as of this encounter Visit Diagnoses Not on filedocumented in this encounter Care Teams Latex Dipper Relationship Specialty Start Date End Date Miguel Mccord MD [address] [place] [id number] PCP - General 07/23/17 08/29/20 Jung Hillman MD [facility] [facility] [address] [place] [address] PCP - General Family Medicine 06/23/25 Darrell Marroquin MD [address] [facility], [facility] [address] [place] [address] Consulting Physician Pain Management 12/05/22 Emeli Marin, ROSEMARY [address] [facility] [address] [place] [address] Retail Merchandising Coordinator 02/27/23 06/23/24 documented as of this encounter
--- OUTSIDE RECORDS SUMMARY | 2025-08-29 00:49 | XMS_ITS | Encounter Summary ---
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
--- OUTSIDE RECORDS SUMMARY | 2025-08-29 00:49 | XMS_ITS | Encounter Summary ---
Author Organization [facility] Healthcare Address [address] [place] [address] Care Team Providers Care Coremaking Supervisor Name Role Phone Darrell Marroquin MD Unavailable Jung Hillman MD Primary Care Provider [phone] Encounter Details Date Type Department Care Team (Late st Contact Info) Description 06/28/2025 Results Follow-Up [facility] Medical [facility] Family Medicine at [address] [place] [address] [phone] Hemoglobin A1c, Comprehensive metabolic panel, CBC with [...] on file 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 Gender Identity Male 01/02/2020 11:06 PM CDT Sexual Orientation Straight 01/02/2020 11 :06 PM CDT documented as of this encounter Functional Status * In the past year, patient experienced: Question Answer Date of Assessment Author One or more falls in the last year 0 2024 10:44 AM Sandy Mauricio MA * BP Location Answer Date of Assessment Author Right arm 08/05/2025 10:44 AM Sandy Mauricio MA * BP Location Answer Date of Assessment Author Right arm 08/05/2025 10:44 AM Sandy Mauricio MA documented as of this encounter Plan [...] on filedocumented in this encounter Care Teams Coremaking Supervisor Relationship Specialty Start Date End Date Jung Hillman MD [address] [facility] [address] [address] PCP - General Family Medicine 06/23/25 Darrell Marroquin MD [address] [facility], [address] [address] Consulting Physician Pain Management 12/05/22 documented as of this encounter
--- OUTSIDE RECORDS SUMMARY | 2025-08-29 00:49 | XMS_ITS | Encounter Summary ---
Author Organization [facility] Healthcare Address [address] [place] [address] Care Team Providers Care Hog Scraper Name Role Phone Miguel Mcocrd MD Primary Care Provider [phone] Darrell Marroquin MD Unavailable Emeli Marin CDE Unavailable [phone] Jung Hillman MD Primary Care Provider [phone] Encounter Details Date Type Department Care Team (Late st Contact Info) Description 02/11/2020 Telephone [facility] ([facility]) [address] [place] [address] Sera Sequeira, RT Social History Tobacco Use Types Packs/Day Years Used Date Smoking Tobacco: Former Sex and Gender Information Value Date Recorded Sex Assigned at Not on file 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 Gender Identity Male 01/02/2020 11:06 PM CDT Sexual Orientation Straight 01/02/2020 11 :06 PM CDT documented as of this encounter Plan of Treatment Not on file documented as of this encounter Visit Diagnoses Not on filedocumented in this encounter Care Teams Hog Scraper Relationship Specialty Start Date End Date Miguel Mccord MD [address] [place] [phone] PCP - General 07/23/17 08/29/20 Jung Hillman MD [facility] [address] [place] [address] PCP - General Family Medicine 06/23/25 Darrell Marroquin MD [address] [facility] [address] [place] [address] Consulting Physician Pain Management 12/05/22 Emeli Marin, ROSEMARY [address] [facility] [address] [place] [address] Clinical Data Coordinator 02/27/23 06/23/24 documented as of this encounter
--- OUTSIDE RECORDS SUMMARY | 2025-08-29 00:49 | XMS_ITS | Encounter Summary ---
Author Organization [facility] Healthcare Address [address] [place] [address] Care Team Providers Care Wire Stitcher Operator Name Role Phone Darrell Marroquin MD Unavailable Jung Hillman MD Primary Care Provider Reason for Visit * Reason Onset Date Comments Medical Records Request 08/17/2025 Encounter Details Date Type Department Care Team (Late st Contact Info) Description 08/17/2025 Telephone [facility] Family Medicine at [address] [place] [address] Jung Hillman MD [address] [place] [address] Medical Records Request Social History Tobacco Use Types Packs/Day Years [...] on file 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 [facility] Date Needed: ROSARIO Delivery Method: Fax Fax number to use for return of records: [phone] Additional Comments/Concerns: There is also a ECG that showing patient may have done but it shows Provider Historical and they are asking if we can find out who did this ECG and give them the information so they can call to ask for copy of the results. Does the message need to be routed? Yes-Action Needed LY CHAIN DIRECTOR documented in this encounter Plan of Treatment Not on file documented as of this encounter Goals Goal Patient Goal Type Associated Problems Recent Progress Patient-Stated? Author Diabetes Goal - Patient verbalizes knowledge and ability to manage diabetes ACO Care Management Emeli Rodriguez, ROSEMARY Note: Problem: Knowledge deficit - Diabetes Interventions: - Provide educational materials specific to patient needs. - Follow up within 1-2 weeks of mailing to review materials and ensure patient understands information provided. Diabetic Diet Goal - Patient will verbalize understanding of diabetic diet and ability to adhere to diet guidelines ACO Care Management Emeli Rodriguez, RODDYE Note: Problem: Knowledge deficit- Diabetic Diet Interventions: [...] on filedocumented in this encounter Care Teams Wire Stitcher Operator Relationship Specialty Start Date End Date Jung Hillman MD [facility] [address] [address] PCP - General Family Medicine 06/23/25 Darrell Marroquin MD [address] [facility], [address] [address] Consulting Physician Pain Management 12/05/22 documented as of this encounter
[2025-08-29] MEDS: LACTATED RINGERS 1,000 ML 30 ML IV CONT ×2 (06:30→09:34)
[2025-08-29] MEDS: VANCOMYCIN 1,500 MG/NS 500 ML 1,500 MG/500 ML BAG 250 MG IVPB (06:30)
--- NOTE | 2025-08-29 06:49 | WPDHPUPDATE1 ---
History and Physical Update Update Date/Time: 08/29/25 06:49 History and Physical has been reviewed, including an updated exam of the patient. There are NO changes in the patient's condition. Risks, benefits, and alternatives have been discussed and questions answered. Patient agrees to proceed with procedure.
[2025-08-29] MEDS: TRANEXAMIC ACID 1,000MG/ISO100 1,000 MG/100 ML BAG 200 MG IVPB (07:00)
[2025-08-29] MEDS: ACETAMINOPHEN 500 MG TABLET 1000 MG PO (07:00)
--- NOTE | 2025-08-29 07:04 | WPDANESEPPF ---
Anes - Initial Pre Proc Eval Procedure: Operation Date: 08/29/25 07:30 Proposed Procedures p Right Total Hip Arthroplasty - Sebastian Ackerman MD Date/Time: 08/29/25 07:04 Surgeon: Sebastian Ackerman MD Pre Op Diagnosis: OA Rt Hip Patient Data Age: 80 Gender: M Height: 1.78 m Weight: 99.2 kg Last Vital Signs Temp 36.9 C 08/04/25 10:08 Pulse 67 08/04/25 10:08 Resp 16 08/04/25 10:08 BP 183/73 H 08/04/25 10:08 Pulse Ox 98 08/04/25 10:08 O2 Del Method Room Air 08/04/25 10:08 Allergies Allergy/AdvReac Type Severity Reaction Status Date / Time No Known Allergies Allergy Verified 08/04/25 10:01 Home Medications ?Medication ?Instructions ?Recorded ?Confirmed ?Type Xantdi 80 mg PO DAILY 05/20/23 08/04/25 History amlodipine 2.5 mg tablet 2.5 mg PO DAILY 05/20/23 08/04/25 History indapamide 1.25 mg tablet 1.25 mg PO DAILY 05/20/23 08/04/25 History lisinopril 40 mg tablet 40 mg PO DAILY 05/20/23 08/04/25 History omeprazole 20 mg capsule,delayed 20 mg PO DAILY 05/20/23 08/04/25 History release aspirin 81 mg tablet 81 mg PO DAILY 07/21/25 08/04/25 History cholecalciferol (vitamin D3) 25 25 mcg PO DAILY 07/21/25 08/04/25 History mcg (1,000 unit) capsule metformin 500 mg tablet,extended 1,000 mg PO QPM 07/21/25 08/04/25 History release 24 hr simvastatin 40 mg tablet 20 mg PO QPM 07/21/25 08/04/25 History cholecalciferol (vitamin D3) 25 25 mcg PO DAILY 08/04/25 08/04/25 History mcg (1,000 unit) capsule (Vitamin D3) insulin glargine 100 unit/mL (3 40 unit subcut QPM 08/08/25 History mL) subcutaneous pen (Lantus Solostar U-100 Insulin) Laboratory Tests 08/29/25 08/29/25 06:37 06:55 POC Capillary Glucose 209 H mg/dl (65-105) Blood Type Pending Antibody Screen Pending Patient hx anesthesia problems: none Family hx anesthesia problems: none Results Review: All pre-operative results and documents have been reviewed as part of the pre-operative evaluation. [facility] Past Medical History Medical History Prostate cancer Surgical History Surgical History No pertinent past surgical history Family History Family History Mother Family history non-contributory Grandparent Cerebrovascular accident Father Heart disease Social History Social History Smoking status: Never smoker Tobacco type: cigarettes Alcohol intake: never Substance use: never Lack of Transportation: No Lack of Food: Never True Current Housing: I Have Housing Concerned About Future Housing: No Difficulty Paying Gas/Electric Bills: No Difficulty Paying for Meds: No Currently Unemployed: No Education: Bachelor's Degree Difficulty w/ Childcare or Family Care: No Living arrangements: incarcerated Occupation/Education: retired Gender identity (if verbalized by the patient): Male Sexual Orientation (if Verbalized by the Patient): Straight or Heterosexual Spiritual care concerns: No Anes - Eval Final PreProcedure Day of Procedure 08/29/25 07:04 Patient weight: obese Heart: regular rate and rhythm Lungs: clear to auscultation Airway: Mallampati scale class III Neurological: alert and oriented Last oral intake: >/= 8 hours ASA classification: III Emergent: no Anesthetic plan: proceed Anesthesia type and monitoring: general ETT and standard monitoring Results Review: All pre-operative results and documents have been reviewed as part of the pre-operative evaluation. Informed Consent: The patient's anesthetic plan and its attendant risks and benefits were discussed with the patient/family/POA. Questions were solicited and answers provided to the satisfaction of the patient/family/POA.
[2025-08-29] MEDS: ceFAZolin 2 GM in SODIUM CHLORIDE 0.9% IV 50 ML 100 ML IVPB ×3 (07:19→21:20)
[2025-08-29] MEDS: NYSTATIN OINTMENT 15 GM TUBE 1 APPLIC TOPICAL (07:29)
[2025-08-29] MEDS: BUPIVACAINE/EPINEPHRINE 0.5% 50 ML VIAL 30 ML INFILTRATE (08:13)
--- NOTE | 2025-08-29 09:03 | P.OP_ITS ---
Procedure Note - Detailed Date of Procedure 08/29/25 Pre-op Diagnosis Osteoarthritis Right Hip Post-op Diagnosis Same Procedure Performed RIGHT Total Hip arthroplasty Surgeon Sebastian Ackerman MD Wash Oil Cooler Operator Fausto Sandhu Anesthesia General Indications Pain and Arthritis Description of Procedure Patient was brought to the operating room #7, and an anesthetic was administered. The patient was placed with the operative Hip up and sterilely prepped and draped in the usual manner. A longitudinal incision was performed. Dissection was carried down to the fascia. A Hardinge type approach was used and the femoral head was dislocated anteriorly. The Femoral head was removed a finger breath above the lesser trochanter. The acetabulum was serially reamed to accept a 52mm component. This was impacted into place and secured with 2 25mm screws. A high wall liner was placed. The femur was reamed and broached to accept a #4 component which was impacted into place. A -3 head and neck were placed and the hip was put through full range of motion. The hip was noted to be stable. The wounds were then closed in a layered fashion using #5 ethibond, 2 vicryl, 2-0 vicryl and jeffery. Patient left the operating room in satisfactory condition. Implants Vishal Z1 stem Vishal multi hole cup Estimated Blood Loss 600 Drains No Packing No Pathology None sent Complications No immediate complications Condition Stable Disposition PACU [facility] Billing Surgery - Charge Forward: Surgery Billing (16825 Total Hip)
[2025-08-29] MEDS: fentaNYL CITRATE INJ (*CRX) 100 MCG/2 ML VIAL 25 MCG IV PUSH ×8 (09:40→10:15)
[2025-08-29] MEDS: HYDROmorphone HCL INJ (*CRX) 1 MG/ML SYR IV PUSH ×2 (10:25→11:50)
--- NOTE | 2025-08-29 10:50 | SUR.PHASEI ---
Dr. Castro aware of elevated BP.
--- NOTE | 2025-08-29 11:23 | ADMGEN ---
This patient, Dung Mohr, was admitted to 3 [facility] Surg Room 306-01. Patient/family oriented to hospital policies and general routines including ID bracelet, bed and alarms, visiting hours, pain management, procedures, bathroom and other care routines, personal items, smoking policy, room service/diet, and visiting hours. Information on how to activate the Rapid Response Team has been discussed. Patient/Family are encouraged to report perceived risks to care and to ask questions if they do not understand what they are told or what they should do.
[2025-08-29] MEDS: SODIUM CHLORIDE 0.9% IV 1,000 ML 125 ML IV CONT (11:48)
--- NOTE | 2025-08-29 12:16 | PC.NURSE ---
Verena Lyons NP notified of bp 203/.
[2025-08-29] MEDS: IBUPROFEN IV 800 MG/200 ML 800 MG/200 ML BAG 400 MG IVPB (12:22)
--- NOTE | 2025-08-29 12:24 | PM.IMCN2 ---
Assessment and Plan Assessment and plan (1) Osteoarthritis of right hip: Qualifiers: Osteoarthritis type: unspecified Qualified Code(s): M16.11 - Unilateral primary osteoarthritis, right hip Code(s): M16.11 - Unilateral primary osteoarthritis, right hip Status: Chronic Assessment and Plan: underwent total right hip arthroplasty on 08/29/2025 for severe OA causing limitations to his ADLs. 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 Lantus at 20% reduction (3) Hypertension: Qualifiers: Hypertension type: primary hypertension Qualified Code(s): I10 - Essential (primary) hypertension Code(s): I10 - Essential (primary) hypertension Status: Chronic Assessment and Plan: Continue amlodipine, lisinopril (4) Hyperlipidemia: Qualifiers: Hyperlipidemia type: unspecified Qualified Code(s): E78.5 - Hyperlipidemia, unspecified Code(s): E78.5 - Hyperlipidemia, unspecified Status: Chronic Assessment and Plan: Continue simvastatin Plan Diet: Consistent carb DVT prophylaxis: SCDs lines/drains: PIV Fluids: Intraoperative Code status: Full Prior Studies I have reviewed the following patient records and this information was taken into consideration when formulating the assessment and plan.: previous labs, previous ER visits, previous hospitalizations and previous clinic visits Time Spent with Patient Time with patient: 45 - 74 minutes HPI Date of Consult Consult date: 08/29/25 Requesting Physician: Sebastian Ackerman MD Primary Care Provider: Jung Hillman, Consult Narrative Reason for consult: Medical management Narrative: Dung Mohr is a 80 year old male with past medical history of DM 2, hypertension, hyperlipidemia presents to the hospital on 08/29/2025 for a planned right total hip arthroplasty. Patient has been having pain to this hip for many years and was noted to have [id number] changes to the hip. Patient's pain was localized to the groin and buttock area. pain would increase with walking and would be minimally relieved with rest. The pain has impacted his ADLs To the point where he has difficulty doing almost any activity. The pain at times radiates down his right thigh.Preoperatively, it was noted the patient has internal rotation of 0 external rotation of 30 is a positive Stinchfield test he has grinding crepitus and pain with manipulation.He walk with an antalgic gait. Patient has failed conservative treatments and wished to proceed with right total hip arthroplasty. Patient tolerated the procedure well and was transferred to the postop unit. Review of Systems Review of Systems: All systems reviewed & are unremarkable except as noted in HPI and below PMFSH Past Medical History Medical History (Updated 08/29/25 @ 15:12 by Verena Lyons APRN) Hyperlipidemia Hypertension Diabetes Prostate cancer Surgical History Surgical History No pertinent past surgical history Family History Family History Mother Family history non-contributory Grandparent Cerebrovascular accident Father Heart disease Social History Social History Smoking packs per day: 1 Smoking cigarettes per day: 20.0 Years smoked: 50 Smoking pack-years: 50.00 Smoking status: Former smoker Additional smoking assessment comments: Denies any nicotine Alcohol intake: never Substance use: never Substance use type: does not use Lack of Transportation: No Lack of Food: Never True Current Housing: I Have Housing Concerned About Future Housing: No Difficulty Paying Gas/Electric Bills: No Difficulty Paying for Meds: No Currently Unemployed: No Education: Master's Degree or Higher Difficulty w/ Childcare or Family Care: No Living arrangements: incarcerated Additional living arrangements comments: Occupation/Education: retired Gender identity (if verbalized by the patient): Male Sexual Orientation (if Verbalized by the Patient): Straight or Heterosexual Spiritual care concerns: No Meds Home Medications and Allergies Home Medications ?Medication ?Instructions ?Recorded ?Confirmed ?Type Xantdi 80 mg PO DAILY 05/20/23 08/04/25 History amlodipine 2.5 mg tablet 2.5 mg PO DAILY 05/20/23 08/29/25 History indapamide 1.25 mg tablet 1.25 mg PO DAILY 05/20/23 08/29/25 History lisinopril 40 mg tablet 40 mg PO DAILY 05/20/23 08/29/25 History omeprazole 20 mg capsule,delayed 20 mg PO DAILY 05/20/23 08/29/25 History release aspirin 81 mg tablet 81 mg PO DAILY 07/21/25 08/29/25 History cholecalciferol (vitamin D3) 25 25 mcg PO DAILY 07/21/25 08/29/25 History mcg (1,000 unit) capsule metformin 500 mg tablet,extended 1,000 mg PO QPM 07/21/25 08/29/25 History release 24 hr simvastatin 40 mg tablet 20 mg PO QPM 07/21/25 08/29/25 History cholecalciferol (vitamin D3) 25 25 mcg PO DAILY 08/04/25 08/29/25 History mcg (1,000 unit) capsule (Vitamin D3) insulin glargine 100 unit/mL (3 40 unit subcut QPM 08/08/25 08/29/25 History mL) subcutaneous pen (Lantus Solostar U-100 Insulin) pregabalin 75 mg capsule 75 mg PO DAILY 08/29/25 08/29/25 History Allergies Allergy/AdvReac Type Severity Reaction Status Date / Time No Known Allergies Allergy Verified 08/29/25 11:28 Vital Signs Vital Signs - 24 hr 08/29/25 06:30 08/29/25 09:34 08/29/25 09:45 Temperature 97.4 F L 97.7 F Pulse Rate 100 66 71 Respiratory Rate 16 18 14 Blood Pressure 164/90 H 152/70 H 152/69 H Pulse Oximetry 96 100 98 Oxygen Delivery Room Air Simple Face Mask Simple Face Mask Oxygen Flow Rate 6 8 08/29/25 10:00 08/29/25 10:15 08/29/25 10:30 Temperature Pulse Rate 84 89 91 Respiratory Rate 22 H 12 16 Blood Pressure 216/89 H 190/93 H 201/81 H Pulse Oximetry 100 100 93 Oxygen Delivery Simple Face Mask Simple Face Mask Nasal Cannula Oxygen Flow Rate 8 8 2 08/29/25 10:45 08/29/25 11:00 Temperature Pulse Rate 91 92 Respiratory Rate 18 18 Blood Pressure 183/90 H 188/96 H Pulse Oximetry 97 95 Oxygen Delivery Nasal Cannula Nasal Cannula Oxygen Flow Rate 2 2 Exam Narrative: GENERAL: non-toxic appearing, in no acute distress. HEAD: Normocephalic, atraumatic. NOSE: Normal no drainage. THROAT: Pharynx clear, no exudate. NECK: Trachea midline. No adenopathy, no masses. RESPIRATORY: Airway patent, respirations nonlabored. CTA. CARDIOVASCULAR: Regular rate and rhythm GASTROINTESTINAL: Abdomen is soft and nontender. No organomegaly. Bowel sounds normal in all quadrants. GENITOURINARY: Defer MUSCULOSKELETAL: Moves all extremities. No gross deformities. Surgical dressing to right hip. Distal pulses palpable. Extremity warm SKIN: Warm, dry, normal color. NEURO: A&O X4. Speech clear PSYCHIATRIC: Normal interaction Quality VTE Prophylaxis VTE prophylaxis: mechanical ordered Hospitalist [facility] Advance Care Plan I have confirmed that the patient's Advanced Care Plan is present, code status is documented, or surrogate decision maker is listed in patient medical record.: Yes Medication Reconciliation I have utilized all available resources to obtain, update and review the patients current medications (includes all prescriptions, OTC, herbals, cannabis, and nutritional supplements).: Yes
[2025-08-29] MEDS: INDAPAMIDE 1.25 MG TABLET PO (13:10)
[2025-08-29] MEDS: HYDROcodone/acetaminophen (*CRX) 5-325 MG TABLET 1 TAB PO (14:50)
[2025-08-29] MEDS: SENNA/DOCUSATE SODIUM TABLET 2 TAB PO (18:07)
[2025-08-29] MEDS: RIVAROXABAN 10 MG TABLET PO (18:08)
[2025-08-29] MEDS: SIMVASTATIN 20 MG TABLET PO (18:08)
[2025-08-29] MEDS: INSULIN ASPART (*BKC) 100 UNITS/ML SUB-Q (18:10)
[2025-08-29] MEDS: INSULIN GLARGINE (*BKC) 100 UNITS/ML 32 UNITS SUB-Q (21:24)
[2025-08-29] MEDS: HYDROcodone/acetaminophen (*CRX) 7.5-325 MG TABLET 1 TAB PO (22:49)
[2025-08-30] VITALS (7 sets, daily range): BP systolic 109–180; BP diastolic 61–79; PULSE 53–110; RESP 14–18; TEMP 35.9–36.9; O2SAT 94–96
--- NOTE | ~2025-08-30 | XR_ITS ---
EXAMINATION: XR surgery orthopedic DATE: 08/29/2025 09:05 INDICATION: Intraoperative evaluation during right total hip arthroplasty TECHNIQUE: Frontal view of the right hip was obtained. COMPARISON: None. FINDINGS: Intraoperative image during a right total hip arthroplasty demonstrate placement of an acetabular component which appears in near anatomic alignment on the single image provided. A femoral broach is in place with the proximal tip centered over the acetabular component. Portions of the pelvis are obscured by a bolster. No fractures in the visualized bones. A few surgical clips project over the pubic symphysis. Expected soft tissue gas at the operative bed about the right hip IMPRESSION: 1. Expected appearance during right total hip arthroplasty. Reviewed, dictated and finalized at location A. T MANAGEMENT ANALYST
[2025-08-30] MEDS: HYDROmorphone HCL INJ (*CRX) 1 MG/ML SYR IV PUSH ×2 (00:18→05:15)
[2025-08-30] MEDS: HYDROcodone/acetaminophen (*CRX) 7.5-325 MG TABLET 1 TAB PO ×3 (02:33→21:01)
[2025-08-30] MEDS: ceFAZolin 2 GM in SODIUM CHLORIDE 0.9% IV 50 ML 100 ML IVPB (05:29)
[2025-08-30 06:17] LABS: Hematocrit 31.7 % (42.0-52.0); Hemoglobin 10.3 g/dL (14.0-18.0); Immature Granulocyte Percent A 0.3 % (0-0.5); Lymphocytes Absolute Auto 1.03 K/mm3 (0.9-3.2); Mean Corpuscular HGB Conc 32.5 g/dl (32-36); Mean Corpuscular Hemoglobin 29.5 pg (26-34); Mean Corpuscular Volume 90.8 fl (80-100); Nucleated Red Blood Cells Absolute Auto 0.000 K/mm3 (0.0-0.012); Nucleated Red Blood Cells Perc 0.0 % (0.0-0.2); Platelet Count Result 241 k/mm3 (150-375); Red Blood Count 3.49 M/mm3 (4.6-6.20); White Blood Count 7.1 K/mm3 (4.5-10.0)
[2025-08-30 06:45] LABS: Anion Gap 5 mmol/L (4-12); Blood Urea Nitrogen 16 mg/dL (9-20); Calcium 9.0 mg/dL (8.4-10.2); Carbon Dioxide 26 mmol/L (22-30); Chloride 98 mmol/L (98-107); Estimated CRCL calculation 95 ml/min; Estimated Glomerular Filt Rate > 60; Glucose 222 mg/dL (65-110); Potassium 3.9 mmol/L (3.4-5.0); Sodium 129 mmol/L (137-145)
--- NOTE | 2025-08-30 06:51 | P.PNOP_ITS ---
Progress Note: A&P Assessment and Plan (1) History of right hip replacement: Code(s): Z96.641 - Presence of right artificial hip joint Status: Acute Assessment and Plan: Patient underwent total hip arthroplasty on the right. He had a lot of pain before surgery continues to have moderate about after. Will see we get his pain under control and start ambulating. He did walk a little last night. Anticipate discharge later that day if he does well in therapy. Subjective Subjective Date/Time Seen: 08/30/25 06:51 Post Op day: 1 Principal diagnosis: Status post right total hip arthroplasty Review of Systems Musculoskeletal: Musculoskeletal: Reports arthralgias and Reports stiffness Neurologic: Reports abnormal gait Exam Narrative: On exam he has internal rotation is 0 external rotation of 30 is a positive Stinchfield test he has grinding crepitus and pain with manipulation. He walks with an antalgic gait. Neurologically he is intact. Eyes: General: appearance normal, both eyes and all related structures Neck: Neck: supple Resp: Effort & Inspection: normal respiratory effort Cardio: Rate: regular rate Rhythm: regular rhythm Objective Data Vital Signs Vital Signs: Vital Signs - 24 hr 08/29/25 09:34 08/29/25 09:45 08/29/25 10:00 Temperature 97.7 F Pulse Rate 66 71 84 Respiratory Rate 18 14 22 H Blood Pressure 152/70 H 152/69 H 216/89 H Pulse Oximetry 100 98 100 Oxygen Delivery Simple Face Mask Simple Face Mask Simple Face Mask Oxygen Flow Rate 6 8 8 08/29/25 10:15 08/29/25 10:30 08/29/25 10:45 Temperature Pulse Rate 89 91 91 Respiratory Rate 12 16 18 Blood Pressure 190/93 H 201/81 H 183/90 H Pulse Oximetry 100 93 97 Oxygen Delivery Simple Face Mask Nasal Cannula Nasal Cannula Oxygen Flow Rate 8 2 2 08/29/25 11:00 08/29/25 13:13 08/29/25 14:00 Temperature Pulse Rate 92 Respiratory Rate 18 Blood Pressure 188/96 H 172/76 H Pulse Oximetry 95 98 Oxygen Delivery Nasal Cannula Room Air Oxygen Flow Rate 2 08/29/25 14:12 08/29/25 14:41 08/29/25 17:24 Temperature Pulse Rate Respiratory Rate Blood Pressure 133/67 Pulse Oximetry Oxygen Delivery Room Air Room Air Oxygen Flow Rate 08/29/25 20:59 08/29/25 21:24 08/29/25 21:24 Temperature 98.4 F Pulse Rate 112 H 98 Respiratory Rate 20 18 Blood Pressure 166/79 H Pulse Oximetry 96 95 Oxygen Delivery Room Air Room Air Oxygen Flow Rate 08/30/25 00:59 08/30/25 05:00 Temperature 98.1 F 97.2 F L Pulse Rate 98 97 Respiratory Rate 18 18 Blood Pressure 180/79 H 153/61 H Pulse Oximetry 95 94 Oxygen Delivery Oxygen Flow Rate Intake/Output Intake/Output: Intake & Output 08/27/25 08/28/25 08/29/25 08/30/25 23:59 23:59 23:59 23:59 Intake Total 1840 550 Output Total 675 75 Balance 1165 475 Meds/Results Medications: Active Medications Generic Name Dose Route Start Last Admin Trade Name Freq PRN Reason Stop Dose Admin Hydrocodone Bitart/Acetaminophen 1 tab 08/29/25 11:14 08/29/25 14:50 Hydrocodone/Acetaminophen (*Crx) 5-325 Mg Tablet PO 1 tab Q4H PRN Administration Pain Rated 4-6 Hydrocodone Bitart/Acetaminophen 1 tab 08/29/25 11:14 08/30/25 02:33 Hydrocodone/Acetaminophen (*Crx) 7.5-325 Mg Tablet PO 1 tab Q4H PRN Administration Pain Rated 7-10 Amlodipine Besylate 2.5 mg 08/30/25 09:00 Amlodipine Besylate 2.5 Mg Tablet PO DAILY [facility] Aspirin 81 mg 08/30/25 09:00 Aspirin 81 Mg Enteric Tablet PO QAM [facility] Celecoxib 200 mg 08/30/25 09:00 Celecoxib 200 Mg Capsule PO DAILY [facility] Dextrose 12.5 gm 08/29/25 12:22 Dextrose 50% 25 Gm/50 Ml Syringe IV PUSH PRN PRN Hypoglycemia Protocol Glucagon 1 mg 08/29/25 12:22 Glucagon For Inj 1 Mg Vial IM PRN PRN Hypoglycemia Protocol Glucose 15 gm 08/29/25 12:22 Glucose Oral Gel 15 Gm Of Glucse In 37.5 Gm Tube PO PRN PRN Hypoglycemia Protocol Hydromorphone HCl 1 mg 08/29/25 11:14 08/30/25 05:15 Hydromorphone Hcl Inj (*Crx) 1 Mg/Ml Syr IV PUSH 1 mg Q2H PRN Administration Breakthrough Pain Rated 7-10 or NPO Hydromorphone HCl 0.5 mg 08/29/25 11:14 Hydromorphone Hcl Inj (*Crx) 1 Mg/Ml Syr IV PUSH Q2H PRN Breakthrough Pain Rated 4-6 or NPO Ibuprofen 800 mg in 200 mls @ 400 mls/hr 08/29/25 11:14 08/29/25 12:22 Caldolor 800 Mg/200 Ml IVPB 400 mls/hr Q6H PRN Administration Breakthrough Pain Rated 1-3 or NPO Dextrose 1,000 mls @ 100 mls/hr 08/29/25 12:22 Dextrose 5% 1,000 Ml IVPB PRN PRN Hypoglycemia Protocol Indapamide 1.25 mg 08/30/25 09:00 Indapamide 1.25 Mg Tablet PO DAILY [facility] Insulin Aspart 3 - 6 units 08/29/25 17:00 08/29/25 18:10 Insulin Aspart (*Bkc) 100 Units/Ml SUB-Q 3 units TIDWM KIM Administration Protocol Insulin Glargine 32 units 08/29/25 21:00 08/29/25 21:24 Insulin Glargine (*Bkc) 100 Units/Ml SUB-Q 32 units HS KIM Administration Lisinopril 40 mg 08/30/25 09:00 Lisinopril 20 Mg Tablet PO DAILY [facility] Naloxone HCl 0.1 mg 08/29/25 11:14 Naloxone Hcl 0.4 Mg/Ml Vial IV PUSH Q2M PRN Opiate Reversal Ondansetron HCl 4 mg 08/29/25 11:14 Ondansetron Inj 4 Mg/2 Ml Vial IV PUSH Q4H PRN Nausea And Vomiting Polyethylene Glycol 17 gm 08/30/25 09:00 Polyethylene Glycol 3350 17 Gm Powd.Pack PO QAM [facility] Pregabalin 75 mg 08/30/25 09:00 Pregabalin (*Crx) 75 Mg Capsule PO DAILY [facility] Rivaroxaban 10 mg 08/29/25 17:00 08/29/25 18:08 Rivaroxaban 10 Mg Tablet PO 10 mg DAILY@1700 KIM Administration Senna/Docusate Sodium 2 tab 08/29/25 17:00 08/29/25 18:07 Senna/Docusate Sodium Tablet PO 2 tab BID [facility] Administration Simvastatin 20 mg 08/29/25 18:00 08/29/25 18:08 Simvastatin 20 Mg Tablet PO 20 mg QPM KIM Administration Tramadol HCl 50 mg 08/29/25 11:14 Tramadol Hcl (*Crx) 50 Mg Tablet PO Q4H PRN Pain Rated 1-3 Radiology Results: ITS Impressions Intraoperative X-Ray 08/29/25 09:11 IMPRESSION: 1. Expected appearance during right total hip arthroplasty. Labs Labs: Laboratory Results - last 24 hr 08/29/25 08/29/25 08/29/25 06:37 06:55 09:38 WBC RBC Hgb Hct MCV MCH MCHC RDW Plt Count MPV Immature Gran % (Auto) Neut % (Auto) Lymph % (Auto) [place] % (Auto) Eos % (Auto) Baso % (Auto) Lymph # (Auto) [place] # (Auto) Eos # (Auto) Baso # (Auto) Abs Immat Gran (auto) Absolute Neuts (auto) Absolute Nucleated RBC Nucleated RBC % Sodium Potassium Chloride Carbon Dioxide Anion Gap BUN Creatinine Estim Creat Clear Calc Estimated GFR Glucose POC Capillary Glucose 209 H 219 H Calcium Blood Type A Positive Antibody Screen Negative 08/29/25 08/29/25 08/30/25 18:06 20:46 05:37 WBC 7.1 RBC 3.49 L Hgb 10.3 L Hct 31.7 L MCV 90.8 MCH 29.5 MCHC 32.5 RDW 14.0 Plt Count 241 MPV 9.8 Immature Gran % (Auto) 0.3 Neut % (Auto) 74.3 H Lymph % (Auto) 14.5 L [place] % (Auto) 9.5 H Eos % (Auto) 1.3 Baso % (Auto) 0.1 L Lymph # (Auto) 1.03 [place] # (Auto) 0.7 H Eos # (Auto) 0.1 Baso # (Auto) 0.0 Abs Immat Gran (auto) 0.02 Absolute Neuts (auto) 5.3 Absolute Nucleated RBC 0.000 Nucleated RBC % 0.0 Sodium 129 L Potassium 3.9 Chloride 98 Carbon Dioxide 26 Anion Gap 5 BUN 16 Creatinine 0.64 L Estim Creat Clear Calc 95 Estimated GFR > 60 Glucose 222 H POC Capillary Glucose 247 H 220 H Calcium 9.0 Blood Type Antibody Screen
[2025-08-30] MEDS: CELECOXIB 200 MG CAPSULE PO (09:06)
[2025-08-30] MEDS: PREGABALIN (*CRX) 75 MG CAPSULE PO (09:07)
[2025-08-30] MEDS: SENNA/DOCUSATE SODIUM TABLET 2 TAB PO ×2 (09:07→17:07)
[2025-08-30] MEDS: ASPIRIN 81 MG ENTERIC TABLET PO (09:07)
[2025-08-30] MEDS: INDAPAMIDE 1.25 MG TABLET PO (09:12)
[2025-08-30] MEDS: INSULIN ASPART (*BKC) 100 UNITS/ML SUB-Q ×4 (09:14→21:22)
--- NOTE | 2025-08-30 13:16 | P.PNAN_ITS ---
Anes - Prog Note Post-Op Date/Time: 08/30/25 13:16 Cardiovascular status: normal Respiratory status: normal Airway patency: baseline Mental status: baseline Post-Op hydration status: normal Vital Signs: Last Vital Signs Temp 35.9 C L 08/30/25 11:55 Pulse 107 H 08/30/25 11:55 Resp 18 08/30/25 11:55 BP 145/62 H 08/30/25 11:55 Pulse Ox 94 08/30/25 11:55 O2 Del Method Room Air 08/30/25 08:30 O2 Flow Rate 2 08/29/25 11:00 Pain Score (VAS): 2 I/O: Intake & Output 08/29/25 08/30/25 08/30/25 23:59 07:59 15:59 Intake Total 580 550 360 Output Total 675 75 500 Balance -95 475 -140 Laboratory Tests 08/30/25 05:37 08/30/25 05:37 08/29/25 08/29/25 08/30/25 18:06 20:46 05:37 WBC 7.1 RBC 3.49 L Hgb 10.3 L Hct 31.7 L MCV 90.8 MCH 29.5 MCHC 32.5 RDW 14.0 Plt Count 241 MPV 9.8 Immature Gran % (Auto) 0.3 Neut % (Auto) 74.3 H Lymph % (Auto) 14.5 L [place] % (Auto) 9.5 H Eos % (Auto) 1.3 Baso % (Auto) 0.1 L Lymph # (Auto) 1.03 [place] # (Auto) 0.7 H Eos # (Auto) 0.1 Baso # (Auto) 0.0 Abs Immat Gran (auto) 0.02 Absolute Neuts (auto) 5.3 Absolute Nucleated RBC 0.000 Nucleated RBC % 0.0 Sodium 129 L Potassium 3.9 Chloride 98 Carbon Dioxide 26 Anion Gap 5 BUN 16 Creatinine 0.64 L Estim Creat Clear Calc 95 Estimated GFR > 60 Glucose 222 H POC Capillary Glucose 247 H 220 H Calcium 9.0 08/30/25 08/30/25 07:46 10:53 WBC RBC Hgb Hct MCV MCH MCHC RDW Plt Count MPV Immature Gran % (Auto) Neut % (Auto) Lymph % (Auto) [place] % (Auto) Eos % (Auto) Baso % (Auto) Lymph # (Auto) [place] # (Auto) Eos # (Auto) Baso # (Auto) Abs Immat Gran (auto) Absolute Neuts (auto) Absolute Nucleated RBC Nucleated RBC % Sodium Potassium Chloride Carbon Dioxide Anion Gap BUN Creatinine Estim Creat Clear Calc Estimated GFR Glucose POC Capillary Glucose 243 H 302 H Calcium Post-procedural complaints: none Patient Feedback: Patient satisfied with anesthetic care.
[2025-08-30] MEDS: SIMVASTATIN 20 MG TABLET PO (17:07)
[2025-08-30] MEDS: RIVAROXABAN 10 MG TABLET PO (17:28)
--- NOTE | 2025-08-30 18:03 | PM.IMPN2 ---
Assessment and Plan Assessment and Plan (1) Osteoarthritis of right hip: Qualifiers: Osteoarthritis type: unspecified Qualified Code(s): M16.11 - Unilateral primary osteoarthritis, right hip Code(s): M16.11 - Unilateral primary osteoarthritis, right hip Status: Chronic Assessment and Plan: underwent total right hip arthroplasty on 08/29/2025 for severe OA causing limitations to his ADLs. - PT/OT eval - hip precautions - encourage incentive spirometry q.2 hours while awake - pain control with Celebrex, [place], Ultram and hydromorphone - prophylactic Xarelto per orthopedic surgery (2) Diabetes: Qualifiers: Diabetes mellitus type: type 2 Diabetes mellitus keno terminal operator insulin use: with fdc use Diabetes mellitus complication status: with hyperglycemia Qualified Code(s): E11.65 - Type 2 diabetes mellitus with hyperglycemia; Z79.4 - superintendent container terminal (current) use of insulin Code(s): E11.9 - Type 2 diabetes mellitus without complications Status: Chronic Assessment and Plan: - hypoglycemia protocol - POC blood glucose ACHS - correct regimen ordered: medium dose corrective sliding scale. Lantus at 20% reduction BS reviewed and somewhat elevated in am will increase lantus to 35 (from 32) monitor closely, goal under 200 (3) Hypertension: Qualifiers: Hypertension type: primary hypertension Qualified Code(s): I10 - Essential (primary) hypertension Code(s): I10 - Essential (primary) hypertension Status: Chronic Assessment and Plan: Continue amlodipine 2.5mg, lisinopril 40 mg BP had been elevated. will increase amlodipine dose to 5 mg monitor closely (4) Hyperlipidemia: Qualifiers: Hyperlipidemia type: unspecified Qualified Code(s): E78.5 - Hyperlipidemia, unspecified Code(s): E78.5 - Hyperlipidemia, unspecified Status: Chronic Assessment and Plan: Continue simvastatin Plan Diet: Consistent carb DVT prophylaxis: SCDs lines/drains: PIV Fluids: Intraoperative Code status: Full Medical Record Review I have reviewed the following patient records and this information was taken into consideration when formulating the assessment and plan.: previous labs Time Spent With Patient Time with patient: 25 - 35 minutes Subjective Date/time seen: 08/30/25 18:03 Interval history: Dung Mohr is a 80 year old male with past medical history of DM 2, hypertension, hyperlipidemia presents to the hospital on 08/29/2025 for a planned right total hip arthroplasty. Patient has been having pain to this hip for many years and was noted to have [id number] changes to the hip. Patient's pain was localized to the groin and buttock area. pain would increase with walking and would be minimally relieved with rest. The pain has impacted his ADLs To the point where he has difficulty doing almost any activity. The pain at times radiates down his right thigh.Preoperatively, it was noted the patient has internal rotation of 0 external rotation of 30 is a positive Stinchfield test he has grinding crepitus and pain with manipulation.He walk with an antalgic gait. Patient has failed conservative treatments and wished to proceed with right total hip arthroplasty. Patient tolerated the procedure well and was transferred to the postop unit. pt is seen and examined. He just got back to bed, pain is a bit high but pain meds usually help. He is passing gas and denies any abd pain or discomfort. Review of Systems Review of Systems: All systems reviewed & are unremarkable except as noted in HPI and below Exam Narrative: GENERAL: non-toxic appearing, in no acute distress. HEAD: Normocephalic, atraumatic. NOSE: Normal no drainage. THROAT: Pharynx clear, no exudate. NECK: Trachea midline. No adenopathy, no masses. RESPIRATORY: Airway patent, respirations nonlabored. CTA. CARDIOVASCULAR: Regular rate and rhythm GASTROINTESTINAL: Abdomen is soft and nontender. No organomegaly. Bowel sounds normal in all quadrants. GENITOURINARY: Defer MUSCULOSKELETAL: Moves all extremities. No gross deformities. Surgical dressing to right hip. Distal pulses palpable. Extremity warm SKIN: Warm, dry, normal color. NEURO: A&O X4. Speech clear PSYCHIATRIC: Normal interaction Const: General: comfortable Objective Data Vital Signs Vital Signs: Vital Signs - 24 hr 08/29/25 20:59 08/29/25 21:24 08/29/25 21:24 Temperature 98.4 F Pulse Rate 112 H 98 Respiratory Rate 20 18 Blood Pressure 166/79 H Pulse Oximetry 96 95 Oxygen Delivery Room Air Room Air 08/30/25 00:59 08/30/25 05:00 08/30/25 08:22 Temperature 98.1 F 97.2 F L 97.5 F L Pulse Rate 98 97 53 L Respiratory Rate 18 18 14 Blood Pressure 180/79 H 153/61 H 150/76 H Pulse Oximetry 95 94 94 Oxygen Delivery 08/30/25 08:30 08/30/25 11:55 Temperature 96.7 F L Pulse Rate 53 L 107 H Respiratory Rate 14 18 Blood Pressure 145/62 H Pulse Oximetry 94 94 Oxygen Delivery Room Air Intake/Output Intake/Output: Intake & Output 08/27/25 08/28/25 08/29/25 08/30/25 23:59 23:59 23:59 23:59 Intake Total 1840 910 Output Total 675 875 Balance 1165 35 Meds/Results Medications: Active Medications Generic Name Dose Route Start Last Admin Trade Name Freq PRN Reason Stop Dose Admin Hydrocodone Bitart/Acetaminophen 1 tab 08/29/25 11:14 08/29/25 14:50 Hydrocodone/Acetaminophen (*Crx) 5-325 Mg Tablet PO 1 tab Q4H PRN Administration Pain Rated 4-6 Hydrocodone Bitart/Acetaminophen 1 tab 08/29/25 11:14 08/30/25 10:28 Hydrocodone/Acetaminophen (*Crx) 7.5-325 Mg Tablet PO 1 tab Q4H PRN Administration Pain Rated 7-10 Amlodipine Besylate 2.5 mg 08/30/25 09:00 08/30/25 09:07 Amlodipine Besylate 2.5 Mg Tablet PO 2.5 mg DAILY KIM Administration Aspirin 81 mg 08/30/25 09:00 08/30/25 09:07 Aspirin 81 Mg Enteric Tablet PO 81 mg QAM KIM Administration Celecoxib 200 mg 08/30/25 09:00 08/30/25 09:06 Celecoxib 200 Mg Capsule PO 200 mg DAILY KIM Administration Dextrose 12.5 gm 08/29/25 12:22 Dextrose 50% 25 Gm/50 Ml Syringe IV PUSH PRN PRN Hypoglycemia Protocol Glucagon 1 mg 08/29/25 12:22 Glucagon For Inj 1 Mg Vial IM PRN PRN Hypoglycemia Protocol Glucose 15 gm 08/29/25 12:22 Glucose Oral Gel 15 Gm Of Glucse In 37.5 Gm Tube PO PRN PRN Hypoglycemia Protocol Hydromorphone HCl 1 mg 08/29/25 11:14 08/30/25 05:15 Hydromorphone Hcl Inj (*Crx) 1 Mg/Ml Syr IV PUSH 1 mg Q2H PRN Administration Breakthrough Pain Rated 7-10 or NPO Hydromorphone HCl 0.5 mg 08/29/25 11:14 Hydromorphone Hcl Inj (*Crx) 1 Mg/Ml Syr IV PUSH Q2H PRN Breakthrough Pain Rated 4-6 or NPO Ibuprofen 800 mg in 200 mls @ 400 mls/hr 08/29/25 11:14 08/29/25 12:22 Caldolor 800 Mg/200 Ml IVPB 400 mls/hr Q6H PRN Administration Breakthrough Pain Rated 1-3 or NPO Dextrose 1,000 mls @ 100 mls/hr 08/29/25 12:22 Dextrose 5% 1,000 Ml IVPB PRN PRN Hypoglycemia Protocol Indapamide 1.25 mg 08/30/25 09:00 08/30/25 09:12 Indapamide 1.25 Mg Tablet PO 1.25 mg DAILY KIM Administration Insulin Aspart 3 - 6 units 08/29/25 17:00 08/30/25 17:28 Insulin Aspart (*Bkc) 100 Units/Ml SUB-Q 3 units TIDWM KIM Administration Protocol Insulin Glargine 32 units 08/29/25 21:00 08/29/25 21:24 Insulin Glargine (*Bkc) 100 Units/Ml SUB-Q 32 units HS KIM Administration Lisinopril 40 mg 08/30/25 09:00 08/30/25 09:06 Lisinopril 20 Mg Tablet PO 40 mg DAILY KIM Administration Naloxone HCl 0.1 mg 08/29/25 11:14 Naloxone Hcl 0.4 Mg/Ml Vial IV PUSH Q2M PRN Opiate Reversal Ondansetron HCl 4 mg 08/29/25 11:14 Ondansetron Inj 4 Mg/2 Ml Vial IV PUSH Q4H PRN Nausea And Vomiting Polyethylene Glycol 17 gm 08/30/25 09:00 08/30/25 09:06 Polyethylene Glycol 3350 17 Gm Powd.Pack PO 17 gm QAM KIM Administration Pregabalin 75 mg 08/30/25 09:00 08/30/25 09:07 Pregabalin (*Crx) 75 Mg Capsule PO 75 mg DAILY KIM Administration Rivaroxaban 10 mg 08/29/25 17:00 08/30/25 17:28 Rivaroxaban 10 Mg Tablet PO 10 mg DAILY@1700 KIM Administration Senna/Docusate Sodium 2 tab 08/29/25 17:00 08/30/25 17:07 Senna/Docusate Sodium Tablet PO 2 tab BID KIM Administration Simvastatin 20 mg 08/29/25 18:00 08/30/25 17:07 Simvastatin 20 Mg Tablet PO 20 mg QPM KIM Administration Tramadol HCl 50 mg 08/29/25 11:14 Tramadol Hcl (*Crx) 50 Mg Tablet PO Q4H PRN Pain Rated 1-3 Wound Care/Dressing Products 1 each 08/30/25 09:00 08/30/25 17:07 Calcium-Sodium Alginate Bandage TOPICAL 1 each DAILY KIM Administration Radiology Results: ITS Impressions Intraoperative X-Ray 08/29/25 09:11 IMPRESSION: 1. Expected appearance during right total hip arthroplasty. Labs Labs: Laboratory Results - last 24 hr 08/29/25 08/29/25 08/30/25 18:06 20:46 05:37 WBC 7.1 RBC 3.49 L Hgb 10.3 L Hct 31.7 L MCV 90.8 MCH 29.5 MCHC 32.5 RDW 14.0 Plt Count 241 MPV 9.8 Immature Gran % (Auto) 0.3 Neut % (Auto) 74.3 H Lymph % (Auto) 14.5 L [place] % (Auto) 9.5 H Eos % (Auto) 1.3 Baso % (Auto) 0.1 L Lymph # (Auto) 1.03 [place] # (Auto) 0.7 H Eos # (Auto) 0.1 Baso # (Auto) 0.0 Abs Immat Gran (auto) 0.02 Absolute Neuts (auto) 5.3 Absolute Nucleated RBC 0.000 Nucleated RBC % 0.0 Sodium 129 L Potassium 3.9 Chloride 98 Carbon Dioxide 26 Anion Gap 5 BUN 16 Creatinine 0.64 L Estim Creat Clear Calc 95 Estimated GFR > 60 Glucose 222 H POC Capillary Glucose 247 H 220 H Calcium 9.0 08/30/25 08/30/25 08/30/25 07:46 10:53 16:13 WBC RBC Hgb Hct MCV MCH MCHC RDW Plt Count MPV Immature Gran % (Auto) Neut % (Auto) Lymph % (Auto) [place] % (Auto) Eos % (Auto) Baso % (Auto) Lymph # (Auto) [place] # (Auto) Eos # (Auto) Baso # (Auto) Abs Immat Gran (auto) Absolute Neuts (auto) Absolute Nucleated RBC Nucleated RBC % Sodium Potassium Chloride Carbon Dioxide Anion Gap BUN Creatinine Estim Creat Clear Calc Estimated GFR Glucose POC Capillary Glucose 243 H 302 H 237 H Calcium Quality VTE Prophylaxis VTE prophylaxis: mechanical ordered
[2025-08-30] MEDS: INSULIN GLARGINE (*BKC) 100 UNITS/ML 35 UNITS SUB-Q (21:01)
--- NOTE | 2025-08-30 21:16 | PM.EVENT ---
Event Note Event Note Event Note: Nursing staff called because the patient nighttime glucose was 310. I reviewed the patient's trended glucoses throughout the day and they ranged from the mid 200s to 300 range. Will change the patient's sliding scale insulin to high-dose correction and will add nighttime correction.
[2025-08-30] MEDS: traMADol HCL (*CRX) 50 MG TABLET PO (23:06)
[2025-08-31] MEDS: HYDROcodone/acetaminophen (*CRX) 7.5-325 MG TABLET 1 TAB PO ×4 (03:30→21:41)
[2025-08-31 05:28] VITALS: BP 139/71; PULSE 89; RESP 16; TEMP 36.2; O2SAT 95
--- NOTE | 2025-08-31 06:40 | PM.PNORT ---
Progress Note: A&P Assessment and Plan (1) History of right hip replacement: Code(s): Z96.641 - Presence of right artificial hip joint Status: Acute Assessment and Plan: Slow progress in therapy. Patient has pain issues too. Will need rehab. Subjective Subjective Date/Time Seen: 08/31/25 06:40 Post Op day: 2 Principal diagnosis: Right Total Hip Review of Systems Musculoskeletal: Musculoskeletal: Reports arthralgias and Reports stiffness Neurologic: Reports abnormal gait Exam Narrative: On exam he has internal rotation is 0 external rotation of 30 is a positive Stinchfield test he has grinding crepitus and pain with manipulation. He walks with an antalgic gait. Neurologically he is intact. Eyes: General: appearance normal, both eyes and all related structures Neck: Neck: supple Resp: Effort & Inspection: normal respiratory effort Cardio: Rate: regular rate Rhythm: regular rhythm Objective Data Vital Signs Vital Signs: Vital Signs - 24 hr 08/30/25 08:22 08/30/25 08:30 08/30/25 11:55 Temperature 97.5 F L 96.7 F L Pulse Rate 53 L 53 L 107 H Respiratory Rate 14 14 18 Blood Pressure 150/76 H 145/62 H Pulse Oximetry 94 94 94 Oxygen Delivery Room Air 08/30/25 20:00 08/30/25 20:17 08/30/25 23:27 Temperature 98.4 F 97.4 F L Pulse Rate 110 H 96 Respiratory Rate 18 18 Blood Pressure 133/70 109/62 Pulse Oximetry 96 94 Oxygen Delivery Room Air 08/31/25 05:28 Temperature 97.1 F L Pulse Rate 89 Respiratory Rate 16 Blood Pressure 139/71 Pulse Oximetry 95 Oxygen Delivery Intake/Output Intake/Output: Intake & Output 08/28/25 08/29/25 08/30/25 08/31/25 23:59 23:59 23:59 23:59 Intake Total 1840 1150 Output Total 675 1475 200 Balance 1165 -325 -200 Meds/Results Medications: Active Medications Generic Name Dose Route Start Last Admin Trade Name Freq PRN Reason Stop Dose Admin Hydrocodone Bitart/Acetaminophen 1 tab 08/29/25 11:14 08/29/25 14:50 Hydrocodone/Acetaminophen (*Crx) 5-325 Mg Tablet PO 1 tab Q4H PRN Administration Pain Rated 4-6 Hydrocodone Bitart/Acetaminophen 1 tab 08/29/25 11:14 08/31/25 03:30 Hydrocodone/Acetaminophen (*Crx) 7.5-325 Mg Tablet PO 1 tab Q4H PRN Administration Pain Rated 7-10 Amlodipine Besylate 5 mg 08/31/25 09:00 Amlodipine Besylate 5 Mg Tablet PO DAILY KIM Aspirin 81 mg 08/30/25 09:00 08/30/25 09:07 Aspirin 81 Mg Enteric Tablet PO 81 mg QAM KIM Administration Celecoxib 200 mg 08/30/25 09:00 08/30/25 09:06 Celecoxib 200 Mg Capsule PO 200 mg DAILY KMI Administration Dextrose 12.5 gm 08/29/25 12:22 Dextrose 50% 25 Gm/50 Ml Syringe IV PUSH PRN PRN Hypoglycemia Protocol Dextrose 12.5 gm 08/30/25 21:14 Dextrose 50% 25 Gm/50 Ml Syringe IV PUSH PRN PRN Hypoglycemia Protocol Glucagon 1 mg 08/29/25 12:22 Glucagon For Inj 1 Mg Vial IM PRN PRN Hypoglycemia Protocol Glucagon 1 mg 08/30/25 21:14 Glucagon For Inj 1 Mg Vial IM PRN PRN Hypoglycemia Protocol Glucose 15 gm 08/29/25 12:22 Glucose Oral Gel 15 Gm Of Glucse In 37.5 Gm Tube PO PRN PRN Hypoglycemia Protocol Glucose 15 gm 08/30/25 21:14 Glucose Oral Gel 15 Gm Of Glucse In 37.5 Gm Tube PO PRN PRN Hypoglycemia Protocol Hydromorphone HCl 1 mg 08/29/25 11:14 08/30/25 05:15 Hydromorphone Hcl Inj (*Crx) 1 Mg/Ml Syr IV PUSH 1 mg Q2H PRN Administration Breakthrough Pain Rated 7-10 or NPO Hydromorphone HCl 0.5 mg 08/29/25 11:14 Hydromorphone Hcl Inj (*Crx) 1 Mg/Ml Syr IV PUSH Q2H PRN Breakthrough Pain Rated 4-6 or NPO Ibuprofen 800 mg in 200 mls @ 400 mls/hr 08/29/25 11:14 08/29/25 12:22 Caldolor 800 Mg/200 Ml IVPB 400 mls/hr Q6H PRN Administration Breakthrough Pain Rated 1-3 or NPO Dextrose 1,000 mls @ 100 mls/hr 08/29/25 12:22 Dextrose 5% 1,000 Ml IVPB PRN PRN Hypoglycemia Protocol Dextrose 1,000 mls @ 100 mls/hr 08/30/25 21:14 Dextrose 5% 1,000 Ml IVPB PRN PRN Hypoglycemia Protocol Indapamide 1.25 mg 08/30/25 09:00 08/30/25 09:12 Indapamide 1.25 Mg Tablet PO 1.25 mg DAILY KIM Administration Insulin Aspart 3 - 6 units 08/29/25 17:00 08/30/25 17:28 Insulin Aspart (*Bkc) 100 Units/Ml SUB-Q 3 units TIDWM KIM Administration Protocol Insulin Aspart 4 - 8 units 08/31/25 08:00 Insulin Aspart (*Bkc) 100 Units/Ml SUB-Q TIDWM KIM Protocol Insulin Aspart 2 - 4 units 08/30/25 21:15 08/30/25 21:22 Insulin Aspart (*Bkc) 100 Units/Ml SUB-Q 3 units HS KIM Administration Protocol Insulin Glargine 35 units 08/30/25 21:00 08/30/25 21:01 Insulin Glargine (*Bkc) 100 Units/Ml SUB-Q 35 units HS KIM Administration Lisinopril 40 mg 08/30/25 09:00 08/30/25 09:06 Lisinopril 20 Mg Tablet PO 40 mg DAILY KIM Administration Naloxone HCl 0.1 mg 08/29/25 11:14 Naloxone Hcl 0.4 Mg/Ml Vial IV PUSH Q2M PRN Opiate Reversal Ondansetron HCl 4 mg 08/29/25 11:14 Ondansetron Inj 4 Mg/2 Ml Vial IV PUSH Q4H PRN Nausea And Vomiting Polyethylene Glycol 17 gm 08/30/25 09:00 08/30/25 09:06 Polyethylene Glycol 3350 17 Gm Powd.Pack PO 17 gm QAM KIM Administration Pregabalin 75 mg 08/30/25 09:00 08/30/25 09:07 Pregabalin (*Crx) 75 Mg Capsule PO 75 mg DAILY KIM Administration Rivaroxaban 10 mg 08/29/25 17:00 08/30/25 17:28 Rivaroxaban 10 Mg Tablet PO 10 mg DAILY@1700 KIM Administration Senna/Docusate Sodium 2 tab 08/29/25 17:00 08/30/25 17:07 Senna/Docusate Sodium Tablet PO 2 tab BID KIM Administration Simvastatin 20 mg 08/29/25 18:00 08/30/25 17:07 Simvastatin 20 Mg Tablet PO 20 mg QPM KIM Administration Tramadol HCl 50 mg 08/29/25 11:14 08/30/25 23:06 Tramadol Hcl (*Crx) 50 Mg Tablet PO 50 mg Q4H PRN Administration Pain Rated 1-3 Wound Care/Dressing Products 1 each 08/30/25 09:00 08/30/25 17:07 Calcium-Sodium Alginate Bandage TOPICAL 1 each DAILY KIM Administration Radiology Results: ITS Impressions Intraoperative X-Ray 08/29/25 09:11 IMPRESSION: 1. Expected appearance during right total hip arthroplasty. Labs Labs: Laboratory Results - last 24 hr 08/30/25 08/30/25 08/30/25 05:37 07:46 10:53 Sodium 129 L Potassium 3.9 Chloride 98 Carbon Dioxide 26 Anion Gap 5 BUN 16 Creatinine 0.64 L Estim Creat Clear Calc 95 Estimated GFR > 60 Glucose 222 H POC Capillary Glucose 243 H 302 H Calcium 9.0 08/30/25 08/30/25 16:13 19:27 Sodium Potassium Chloride Carbon Dioxide Anion Gap BUN Creatinine Estim Creat Clear Calc Estimated GFR Glucose POC Capillary Glucose 237 H 310 H Calcium
[2025-08-31] MEDS: PREGABALIN (*CRX) 75 MG CAPSULE PO (08:32)
[2025-08-31] MEDS: CELECOXIB 200 MG CAPSULE PO (08:33)
[2025-08-31] MEDS: ASPIRIN 81 MG ENTERIC TABLET PO (08:33)
[2025-08-31] MEDS: SENNA/DOCUSATE SODIUM TABLET 2 TAB PO ×2 (08:33→17:56)
--- NOTE | 2025-08-31 08:36 | PM.IMCN2 ---
Assessment and Plan Assessment and plan (1) Osteoarthritis of right hip: Qualifiers: Osteoarthritis type: unspecified Qualified Code(s): M16.11 - Unilateral primary osteoarthritis, right hip Code(s): M16.11 - Unilateral primary osteoarthritis, right hip Status: Chronic Assessment and Plan: underwent total right hip arthroplasty on 08/29/2025 for severe OA causing limitations to his ADLs. - PT/OT eval - hip precautions - encourage incentive spirometry q.2 hours while awake, pt reports being active with this - pain control with Celebrex, [place], Ultram and hydromorphone - prophylactic Xarelto per orthopedic surgery (2) Diabetes: Qualifiers: Diabetes mellitus complication status: with hyperglycemia Diabetes mellitus computer terminal operator insulin use: with intermediate use Diabetes mellitus type: type 2 Qualified Code(s): E11.65 - Type 2 diabetes mellitus with hyperglycemia; Z79.4 - care home (current) use of insulin Code(s): E11.9 - Type 2 diabetes mellitus without complications Status: Chronic Assessment and Plan: - hypoglycemia protocol - POC blood glucose ACHS - correct regimen ordered: medium dose corrective sliding scale. Lantus at 20% reduction BS reviewed and somewhat elevated in am will increase lantus to 35 (from 32) monitor closely, goal under 200 -Cross cover note last night for high BS. Increased sliding scale to high coverage as well as night time sliding scale (3) Hypertension: Qualifiers: Hypertension type: primary hypertension Qualified Code(s): I10 - Essential (primary) hypertension Code(s): I10 - Essential (primary) hypertension Status: Chronic Assessment and Plan: Continue amlodipine 2.5mg, lisinopril 40 mg BP had been elevated. will increase amlodipine dose to 5 mg monitor closely. Surveyed today, readings have been stable on current regimen. (4) Hyperlipidemia: Qualifiers: Hyperlipidemia type: unspecified Qualified Code(s): E78.5 - Hyperlipidemia, unspecified Code(s): E78.5 - Hyperlipidemia, unspecified Status: Chronic Assessment and Plan: Continue simvastatin Plan Diet: Consistent carb DVT prophylaxis: SCDs, Xarelto lines/drains: PIV Fluids: NA Code status: Line Builder Spent with Patient Time with patient: less than 45 minutes HPI Date of Consult Consult date: 08/31/25 Requesting Physician: Sebastian Ackerman MD Primary Care Provider: Jung Hillman, Consult Narrative Narrative: Dung Mohr is a 80 year old male admitted to the ortho service for R hip surgery. HM following for DM and HTN. Denies any acute sx.he reports that his R hip pain is better today. Review of Systems Review of Systems: All systems reviewed & are unremarkable except as noted in HPI and below PMFSH Past Medical History Medical History (Updated 08/29/25 @ 15:12 by Verena Lyons APRN) Hyperlipidemia Hypertension Diabetes Prostate cancer Surgical History Surgical History (Updated 08/30/25 @ 06:44 by Sebastian Ackerman MD) No pertinent past surgical history Family History Family History Mother Family history non-contributory Grandparent Cerebrovascular accident Father Heart disease Social History Social History Smoking packs per day: 1 Smoking cigarettes per day: 20.0 Years smoked: 50 Smoking pack-years: 50.00 Smoking status: Former smoker Additional smoking assessment comments: Denies any nicotine Alcohol intake: never Substance use: never Substance use type: does not use Lack of Transportation: No Lack of Food: Never True Current Housing: I Have Housing Concerned About Future Housing: No Difficulty Paying Gas/Electric Bills: No Difficulty Paying for Meds: No Currently Unemployed: No Education: Master's Degree or Higher Difficulty w/ Childcare or Family Care: No Living arrangements: incarcerated Additional living arrangements comments: Occupation/Education: retired Gender identity (if verbalized by the patient): Male Sexual Orientation (if Verbalized by the Patient): Straight or Heterosexual Spiritual care concerns: No Meds Home Medications and Allergies Home Medications ?Medication ?Instructions ?Recorded ?Confirmed ?Type Xantdi 80 mg PO DAILY 05/20/23 08/04/25 History amlodipine 2.5 mg tablet 2.5 mg PO DAILY 05/20/23 08/29/25 History indapamide 1.25 mg tablet 1.25 mg PO DAILY 05/20/23 08/29/25 History lisinopril 40 mg tablet 40 mg PO DAILY 05/20/23 08/29/25 History omeprazole 20 mg capsule,delayed 20 mg PO DAILY 05/20/23 08/29/25 History release aspirin 81 mg tablet 81 mg PO DAILY 07/21/25 08/29/25 History cholecalciferol (vitamin D3) 25 25 mcg PO DAILY 07/21/25 08/29/25 History mcg (1,000 unit) capsule metformin 500 mg tablet,extended 1,000 mg PO QPM 07/21/25 08/29/25 History release 24 hr simvastatin 40 mg tablet 20 mg PO QPM 07/21/25 08/29/25 History cholecalciferol (vitamin D3) 25 25 mcg PO DAILY 08/04/25 08/29/25 History mcg (1,000 unit) capsule (Vitamin D3) insulin glargine 100 unit/mL (3 40 unit subcut QPM 08/08/25 08/29/25 History mL) subcutaneous pen (Lantus Solostar U-100 Insulin) pregabalin 75 mg capsule 75 mg PO DAILY 08/29/25 08/29/25 History doxycycline hyclate 100 mg tablet 100 mg PO BID #20 tabs 08/30/25 Rx hydrocodone 5 mg-acetaminophen 325 1 tablet PO Q6H PRN pain #40 tabs 08/30/25 Rx mg tablet hydrocodone 7.5 mg-acetaminophen 1 tablet PO Q4H PRN pain #40 tabs 08/30/25 Rx 325 mg tablet rivaroxaban 10 mg tablet (Xarelto) 10 mg PO DAILY #20 tabs 08/30/25 Rx Allergies Allergy/AdvReac Type Severity Reaction Status Date / Time No Known Allergies Allergy Verified 08/29/25 11:28 Vital Signs Vital Signs - 24 hr 08/30/25 11:55 08/30/25 20:00 08/30/25 20:17 Temperature 96.7 F L 98.4 F Pulse Rate 107 H 110 H Respiratory Rate 18 18 Blood Pressure 145/62 H 133/70 Pulse Oximetry 94 96 Oxygen Delivery Room Air 08/30/25 23:27 08/31/25 05:28 Temperature 97.4 F L 97.1 F L Pulse Rate 96 89 Respiratory Rate 18 16 Blood Pressure 109/62 139/71 Pulse Oximetry 94 95 Oxygen Delivery Exam Narrative: GENERAL: non-toxic appearing, in no acute distress. HEAD: Normocephalic, atraumatic. NOSE: Normal no drainage. THROAT: Pharynx clear, no exudate. NECK: Trachea midline. No adenopathy, no masses. RESPIRATORY: Airway patent, respirations nonlabored. CTA. CARDIOVASCULAR: Regular rate and rhythm GASTROINTESTINAL: Abdomen is soft and nontender. No organomegaly. Bowel sounds normal in all quadrants. GENITOURINARY: Defer MUSCULOSKELETAL: Moves all extremities. No gross deformities. Surgical dressing to right hip. Distal pulses palpable. Extremity warm SKIN: Warm, dry, normal color. NEURO: A&O X4. Speech clear PSYCHIATRIC: Normal interaction Const: General: comfortable Results Labs 08/30/25 05:37 08/30/25 05:37 Quality VTE Prophylaxis VTE prophylaxis: mechanical ordered and pharmacologic ordered
[2025-08-31] MEDS: INDAPAMIDE 1.25 MG TABLET PO (08:42)
[2025-08-31] MEDS: INSULIN ASPART (*BKC) 100 UNITS/ML SUB-Q ×4 (09:29→21:42)
[2025-08-31 10:00] VITALS: PULSE 89; RESP 16; O2SAT 95
[2025-08-31 14:00] VITALS: BP 130/84; PULSE 108; RESP 20; TEMP 37.1; O2SAT 98
[2025-08-31] MEDS: SIMVASTATIN 20 MG TABLET PO (17:56)
[2025-08-31] MEDS: RIVAROXABAN 10 MG TABLET PO (17:56)
[2025-08-31 21:00] VITALS: BP 145/81; PULSE 91; RESP 14; TEMP 36.3; O2SAT 96
[2025-08-31] MEDS: INSULIN GLARGINE (*BKC) 100 UNITS/ML 35 UNITS SUB-Q (21:44)
[2025-09-01] MEDS: HYDROcodone/acetaminophen (*CRX) 7.5-325 MG TABLET 1 TAB PO ×2 (03:05→08:22)
[2025-09-01 05:30] VITALS: BP 174/89; PULSE 90; RESP 20; TEMP 36.1; O2SAT 95
[2025-09-01 06:30] LABS: Hematocrit 29.4 % (42.0-52.0); Hemoglobin 9.7 g/dL (14.0-18.0); Immature Granulocyte Percent A 0.6 % (0-0.5); Lymphocytes Absolute Auto 1.12 K/mm3 (0.9-3.2); Mean Corpuscular HGB Conc 33.0 g/dl (32-36); Mean Corpuscular Hemoglobin 29.9 pg (26-34); Mean Corpuscular Volume 90.7 fl (80-100); Nucleated Red Blood Cells Absolute Auto 0.000 K/mm3 (0.0-0.012); Nucleated Red Blood Cells Perc 0.0 % (0.0-0.2); Platelet Count Result 232 k/mm3 (150-375); Red Blood Count 3.24 M/mm3 (4.6-6.20); White Blood Count 7.9 K/mm3 (4.5-10.0)
[2025-09-01 06:55] LABS: Alanine Aminotransferase 13 U/L (6-50); Albumin Level 3.7 g/dL (3.5-5.1); Alkaline Phosphatase 64 U/L (38-126); Anion Gap 5 mmol/L (4-12); Aspartate Amino Transferase 31 U/L (17-59); Bilirubin,Total 1.0 mg/dL (0.2-1.3); Blood Urea Nitrogen 21 mg/dL (9-20); Calcium 9.1 mg/dL (8.4-10.2); Carbon Dioxide 28 mmol/L (22-30); Chloride 96 mmol/L (98-107); Estimated CRCL calculation 87 ml/min; Estimated Glomerular Filt Rate > 60; Glucose 229 mg/dL (65-110); Potassium 3.7 mmol/L (3.4-5.0); Sodium 129 mmol/L (137-145); Total Protein 7.3 g/dL (6.3-8.2)
--- NOTE | 2025-09-01 07:03 | P.PNOP_ITS ---
Progress Note: A&P Assessment and Plan (1) History of right hip replacement: Code(s): Z96.641 - Presence of right artificial hip joint Status: Acute Assessment and Plan: Patient is having pain issues and slow progress in therapy. He needs rehab. We will arrange for this. Sutures out in 2 weeks. Subjective Subjective Date/Time Seen: 09/01/25 07:03 Post Op day: 3 Principal diagnosis: Right Total Hip Review of Systems Musculoskeletal: Musculoskeletal: Reports arthralgias and Reports stiffness Neurologic: Reports abnormal gait Exam Narrative: On exam he has internal rotation is 0 external rotation of 30 is a positive Stinchfield test he has grinding crepitus and pain with manipulation. He walks with an antalgic gait. Neurologically he is intact. Eyes: General: appearance normal, both eyes and all related structures Neck: Neck: supple Resp: Effort & Inspection: normal respiratory effort Cardio: Rate: regular rate Rhythm: regular rhythm Objective Data Vital Signs Vital Signs: Vital Signs - 24 hr 08/31/25 10:00 08/31/25 14:00 08/31/25 20:00 Temperature 98.8 F Pulse Rate 89 108 H Respiratory Rate 16 20 Blood Pressure 130/84 Pulse Oximetry 95 98 Oxygen Delivery Room Air Room Air 08/31/25 21:00 09/01/25 05:30 Temperature 97.3 F L 97 F L Pulse Rate 91 90 Respiratory Rate 14 20 Blood Pressure 145/81 H 174/89 H Pulse Oximetry 96 95 Oxygen Delivery Intake/Output Intake/Output: Intake & Output 08/29/25 08/30/25 08/31/25 09/01/25 23:59 23:59 23:59 23:59 Intake Total 1840 1150 2100 300 Output Total 675 1475 425 900 Balance 1165 -325 1675 -600 Meds/Results Medications: Active Medications Generic Name Dose Route Start Last Admin Trade Name Freq PRN Reason Stop Dose Admin Hydrocodone Bitart/Acetaminophen 1 tab 08/29/25 11:14 08/29/25 14:50 Hydrocodone/Acetaminophen (*Crx) 5-325 Mg Tablet PO 1 tab Q4H PRN Administration Pain Rated 4-6 Hydrocodone Bitart/Acetaminophen 1 tab 08/29/25 11:14 09/01/25 03:05 Hydrocodone/Acetaminophen (*Crx) 7.5-325 Mg Tablet PO 1 tab Q4H PRN Administration Pain Rated 7-10 Amlodipine Besylate 5 mg 08/31/25 09:00 08/31/25 08:33 Amlodipine Besylate 5 Mg Tablet PO 5 mg DAILY KIM Administration Aspirin 81 mg 08/30/25 09:00 08/31/25 08:33 Aspirin 81 Mg Enteric Tablet PO 81 mg QAM KIM Administration Celecoxib 200 mg 08/30/25 09:00 08/31/25 08:33 Celecoxib 200 Mg Capsule PO 200 mg DAILY KIM Administration Dextrose 12.5 gm 08/29/25 12:22 Dextrose 50% 25 Gm/50 Ml Syringe IV PUSH PRN PRN Hypoglycemia Protocol Dextrose 12.5 gm 08/30/25 21:14 Dextrose 50% 25 Gm/50 Ml Syringe IV PUSH PRN PRN Hypoglycemia Protocol Glucagon 1 mg 08/29/25 12:22 Glucagon For Inj 1 Mg Vial IM PRN PRN Hypoglycemia Protocol Glucagon 1 mg 08/30/25 21:14 Glucagon For Inj 1 Mg Vial IM PRN PRN Hypoglycemia Protocol Glucose 15 gm 08/29/25 12:22 Glucose Oral Gel 15 Gm Of Glucse In 37.5 Gm Tube PO PRN PRN Hypoglycemia Protocol Glucose 15 gm 08/30/25 21:14 Glucose Oral Gel 15 Gm Of Glucse In 37.5 Gm Tube PO PRN PRN Hypoglycemia Protocol Hydromorphone HCl 1 mg 08/29/25 11:14 08/30/25 05:15 Hydromorphone Hcl Inj (*Crx) 1 Mg/Ml Syr IV PUSH 1 mg Q2H PRN Administration Breakthrough Pain Rated 7-10 or NPO Hydromorphone HCl 0.5 mg 08/29/25 11:14 Hydromorphone Hcl Inj (*Crx) 1 Mg/Ml Syr IV PUSH Q2H PRN Breakthrough Pain Rated 4-6 or NPO Ibuprofen 800 mg in 200 mls @ 400 mls/hr 08/29/25 11:14 08/29/25 12:22 Caldolor 800 Mg/200 Ml IVPB 400 mls/hr Q6H PRN Administration Breakthrough Pain Rated 1-3 or NPO Dextrose 1,000 mls @ 100 mls/hr 08/29/25 12:22 Dextrose 5% 1,000 Ml IVPB PRN PRN Hypoglycemia Protocol Dextrose 1,000 mls @ 100 mls/hr 08/30/25 21:14 Dextrose 5% 1,000 Ml IVPB PRN PRN Hypoglycemia Protocol Indapamide 1.25 mg 08/30/25 09:00 08/31/25 08:42 Indapamide 1.25 Mg Tablet PO 1.25 mg DAILY KIM Administration Insulin Aspart 4 - 8 units 08/31/25 08:00 08/31/25 17:57 Insulin Aspart (*Bkc) 100 Units/Ml SUB-Q 5 units TIDWM KIM Administration Protocol Insulin Aspart 2 - 4 units 08/30/25 21:15 08/31/25 21:42 Insulin Aspart (*Bkc) 100 Units/Ml SUB-Q 2 units HS KIM Administration Protocol Insulin Glargine 35 units 08/30/25 21:00 08/31/25 21:44 Insulin Glargine (*Bkc) 100 Units/Ml SUB-Q 35 units HS KIM Administration Lisinopril 40 mg 08/30/25 09:00 08/31/25 08:32 Lisinopril 20 Mg Tablet PO 40 mg DAILY KIM Administration Naloxone HCl 0.1 mg 08/29/25 11:14 Naloxone Hcl 0.4 Mg/Ml Vial IV PUSH Q2M PRN Opiate Reversal Ondansetron HCl 4 mg 08/29/25 11:14 Ondansetron Inj 4 Mg/2 Ml Vial IV PUSH Q4H PRN Nausea And Vomiting Polyethylene Glycol 17 gm 08/30/25 09:00 08/31/25 08:32 Polyethylene Glycol 3350 17 Gm Powd.Pack PO 17 gm QAM KIM Administration Pregabalin 75 mg 08/30/25 09:00 08/31/25 08:32 Pregabalin (*Crx) 75 Mg Capsule PO 75 mg DAILY KIM Administration Rivaroxaban 10 mg 08/29/25 17:00 08/31/25 17:56 Rivaroxaban 10 Mg Tablet PO 10 mg DAILY@1700 KIM Administration Senna/Docusate Sodium 2 tab 08/29/25 17:00 08/31/25 17:56 Senna/Docusate Sodium Tablet PO 2 tab BID KIM Administration Simvastatin 20 mg 08/29/25 18:00 08/31/25 17:56 Simvastatin 20 Mg Tablet PO 20 mg QPM KIM Administration Tramadol HCl 50 mg 08/29/25 11:14 08/30/25 23:06 Tramadol Hcl (*Crx) 50 Mg Tablet PO 50 mg Q4H PRN Administration Pain Rated 1-3 Wound Care/Dressing Products 1 each 08/30/25 09:00 08/31/25 14:41 Calcium-Sodium Alginate Bandage TOPICAL Not Given DAILY KIM Radiology Results: ITS Impressions Intraoperative X-Ray 08/29/25 09:11 IMPRESSION: 1. Expected appearance during right total hip arthroplasty. Labs Labs: Laboratory Results - last 24 hr 08/31/25 08/31/25 08/31/25 07:45 11:48 16:58 WBC RBC Hgb Hct MCV MCH MCHC RDW Plt Count MPV Immature Gran % (Auto) Neut % (Auto) Lymph % (Auto) [place] % (Auto) Eos % (Auto) Baso % (Auto) Lymph # (Auto) [place] # (Auto) Eos # (Auto) Baso # (Auto) Abs Immat Gran (auto) Absolute Neuts (auto) Absolute Nucleated RBC Nucleated RBC % Sodium Potassium Chloride Carbon Dioxide Anion Gap BUN Creatinine Estim Creat Clear Calc Estimated GFR Glucose POC Capillary Glucose 221 H 270 H 252 H Calcium Total Bilirubin AST ALT Alkaline Phosphatase Total Protein Albumin 08/31/25 09/01/25 21:04 05:50 WBC 7.9 RBC 3.24 L Hgb 9.7 L Hct 29.4 L MCV 90.7 MCH 29.9 MCHC 33.0 RDW 13.7 Plt Count 232 MPV 9.8 Immature Gran % (Auto) 0.6 H Neut % (Auto) 73.7 H Lymph % (Auto) 14.2 L [place] % (Auto) 8.4 Eos % (Auto) 3.0 Baso % (Auto) 0.1 L Lymph # (Auto) 1.12 [place] # (Auto) 0.7 H Eos # (Auto) 0.2 Baso # (Auto) 0.0 Abs Immat Gran (auto) 0.05 H Absolute Neuts (auto) 5.8 Absolute Nucleated RBC 0.000 Nucleated RBC % 0.0 Sodium 129 L Potassium 3.7 Chloride 96 L Carbon Dioxide 28 Anion Gap 5 BUN 21 H Creatinine 0.70 Estim Creat Clear Calc 87 Estimated GFR > 60 Glucose 229 H POC Capillary Glucose 287 H Calcium 9.1 Total Bilirubin 1.0 AST 31 ALT 13 Alkaline Phosphatase 64 Total Protein 7.3 Albumin 3.7
[2025-09-01] MEDS: SENNA/DOCUSATE SODIUM TABLET 2 TAB PO (08:53)
[2025-09-01] MEDS: PREGABALIN (*CRX) 75 MG CAPSULE PO (08:54)
[2025-09-01] MEDS: ASPIRIN 81 MG ENTERIC TABLET PO (08:54)
[2025-09-01] MEDS: INDAPAMIDE 1.25 MG TABLET PO (08:54)
[2025-09-01] MEDS: CELECOXIB 200 MG CAPSULE PO (08:54)
[2025-09-01] MEDS: INSULIN ASPART (*BKC) 100 UNITS/ML SUB-Q ×2 (08:55→12:02)
--- NOTE | 2025-09-01 10:09 | PM.DS ---
DS: Admitting Diagnosis Discharge Date 09/01/2020 Admitting Diagnosis Osteoarthritis right hip DS: Discharge Diagnosis Discharge Diagnosis (1) History of right hip replacement: Code(s): Z96.641 - Presence of right artificial hip joint Status: Acute Assessment and Plan: Patient underwent right total hip arthroplasty. He progressed slowly in the hospital. He is needing help with transfer of 2 people. Pain is managed somewhat by narcotics but he continues to have a fair bit of difficulty. Will send him to rehab for a time until he gets his strength back in the pain and control. DS: Summary Hospital Course Hospital Course: Patient underwent right total hip arthroplasty. He progressed slowly in the hospital. He is needing help with transfer of 2 people. Pain is managed somewhat by narcotics but he continues to have a fair bit of difficulty. Will send him to rehab for a time until he gets his strength back in the pain and control. Time Spent with Patient Time attestation: Total time spent providing and/or coordinating discharge services: Exam Narrative: Patient's dressing is intact. He wiggles his toes well. He has pain with any manipulation. He is able ambulate with a walker the help of 2 people. Neurologically he is intact. DS: Data Data Completed and Pending Labs on day of discharge: Labs from last 24 hours 09/01/25 09/01/25 09/01/25 09:42 08:42 05:50 WBC 7.9 RBC 3.24 L Hgb 9.7 L Hct 29.4 L MCV 90.7 MCH 29.9 MCHC 33.0 RDW 13.7 Plt Count 232 MPV 9.8 Immature Gran % (Auto) 0.6 H Neut % (Auto) 73.7 H Lymph % (Auto) 14.2 L [place] % (Auto) 8.4 Eos % (Auto) 3.0 Baso % (Auto) 0.1 L Lymph # (Auto) 1.12 [place] # (Auto) 0.7 H Eos # (Auto) 0.2 Baso # (Auto) 0.0 Abs Immat Gran (auto) 0.05 H Absolute Neuts (auto) 5.8 Absolute Nucleated RBC 0.000 Nucleated RBC % 0.0 Sodium 129 L Potassium 3.7 Chloride 96 L Carbon Dioxide 28 Anion Gap 5 BUN 21 H Creatinine 0.70 Estim Creat Clear Calc 87 Estimated GFR > 60 Glucose 229 H POC Capillary Glucose 245 H Calcium 9.1 Total Bilirubin 1.0 AST 31 ALT 13 Alkaline Phosphatase 64 Total Protein 7.3 Albumin 3.7 SARS-CoV-2 RNA (RT-PCR) Pending 08/31/25 08/31/25 08/31/25 21:04 16:58 11:48 WBC RBC Hgb Hct MCV MCH MCHC RDW Plt Count MPV Immature Gran % (Auto) Neut % (Auto) Lymph % (Auto) [place] % (Auto) Eos % (Auto) Baso % (Auto) Lymph # (Auto) [place] # (Auto) Eos # (Auto) Baso # (Auto) Abs Immat Gran (auto) Absolute Neuts (auto) Absolute Nucleated RBC Nucleated RBC % Sodium Potassium Chloride Carbon Dioxide Anion Gap BUN Creatinine Estim Creat Clear Calc Estimated GFR Glucose POC Capillary Glucose 287 H 252 H 270 H Calcium Total Bilirubin AST ALT Alkaline Phosphatase Total Protein Albumin SARS-CoV-2 RNA (RT-PCR) Discharge Plan Discharge Attending physician on discharge: Sebastian Ackerman Consulting providers: Verena Lyons; Sara Conrad Discharging Clinician: Sebastian Ackerman Patient Disposition: SNF Activity: follow weight bearing status Diet: diabetic Discharge Instructions: Dr. Sebastian Ackerman M.D [id number] [address] POST-OPERATIVE DISCHARGE INSTRUCTIONS TOTAL HIP ARTHROPLASTY 1. Move toes/feet up and down every hour while awake. 2. Be up walking every hour while awake. 3. Use walker full time staff interpreter if instructed to use walker full time staff interpreter.When you are allowed to use the cane, use the cane in the opposite hand. 4. When resting, do not rest in the chair. Rather, lie on your back, with back flat, and the leg elevated above heart to minimize swelling. You may put a pillow under your head. Do not rest in a chair. Resting in the chair results in swelling in the leg. Significant swelling could indicate a blood clot and if this occurs, call the office (or go to the ER) to have a venous ultrasound performed. Its ok to sit in the chair to eat and use the toilet and to receive a guest but sitting in a chair will cause your leg to swell. so try to minimize sitting in a chair. 5. Wound Care: Apply a folded 4x4 sponge to incision and hold with crossing strips of 1 inch Transpore tape. 6. Follow weight bearing status as instructed: 7. May shower. Remove dressing before shower and reapply dressing after shower. Patient Instructions: Rivaroxaban (By mouth), Pain Management (GEN) Patient Language: [place]an Stand Alone Forms: General Discharge Information Follow-up/Referrals: Sebastian Ackerman MD [Physician, Orthopedics] Discharge Medications: New hydrocodone-acetaminophen 7.5-325 mg tablet 1 tablet PO Q4H PRN (Reason: pain) Qty: 40 0RF doxycycline hyclate 100 mg tablet 100 mg PO BID Qty: 20 0RF Xarelto 10 mg tablet 10 mg PO DAILY Qty: 20 0RF Rx Instructions: 20 days then switch to aspirin hydrocodone-acetaminophen 7.5-325 mg tablet 1 tablet PO Q6H PRN (Reason: pain) Qty: 40 0RF Continued amlodipine 2.5 mg tablet 2.5 mg PO DAILY indapamide 1.25 mg tablet 1.25 mg PO DAILY omeprazole 20 mg capsule,delayed release(DR/EC) 20 mg PO DAILY lisinopril 40 mg tablet 40 mg PO DAILY Xantdi capsule 80 mg PO DAILY simvastatin 40 mg tablet 20 mg PO QPM metformin 500 mg tablet extended release 24 hr 1,000 mg PO QPM Rx Instructions: 2 tablets BID aspirin 81 mg tablet 81 mg PO DAILY cholecalciferol (vitamin D3) 25 mcg (1,000 unit) capsule 25 mcg PO DAILY cholecalciferol (vitamin D3) [Vitamin D3] 25 mcg (1,000 unit) capsule 25 mcg PO DAILY pregabalin 75 mg capsule 75 mg PO DAILY insulin glargine [Lantus Solostar U-100 Insulin] 100 unit/mL (3 mL) insulin pen 40 unit subcut QPM No Action hydrocodone-acetaminophen 5-325 mg tablet 1 tablet PO Q6H PRN (Reason: pain) Qty: 40 0RF Date of admission: 08/30/25 16:14 Primary Care Provider: Rafy,Jung Rich Admitting Provider: Sebastian Ackerman Attending physician on admission: Sebastian Ackerman Condition: Stable
[2025-09-01 10:29] LABS: SARS-CoV-2 RNA PCR Negative (Negative)
--- NOTE | 2025-09-01 12:41 | PM.IMCN2 ---
Assessment and Plan Assessment and plan (1) Osteoarthritis of right hip: Qualifiers: Osteoarthritis type: unspecified Qualified Code(s): M16.11 - Unilateral primary osteoarthritis, right hip Code(s): M16.11 - Unilateral primary osteoarthritis, right hip Status: Chronic Assessment and Plan: underwent total right hip arthroplasty on 08/29/2025 for severe OA causing limitations to his ADLs. 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 Lantus at 20% reduction BS reviewed and somewhat elevated in am will increase lantus to 35 (from 32) monitor closely, goal under 200 Pt to resume home meds upon discharge with PCP/endo f/u (3) Hypertension: Qualifiers: Hypertension type: primary hypertension Qualified Code(s): I10 - Essential (primary) hypertension Code(s): I10 - Essential (primary) hypertension Status: Chronic Assessment and Plan: Continue amlodipine 2.5mg, lisinopril 40 mg BP had been elevated. will increase amlodipine dose to 5 mg, to go home on this dose. monitor closely. Surveyed today, readings have been stable on current regimen. (4) Hyperlipidemia: Qualifiers: Hyperlipidemia type: unspecified Qualified Code(s): E78.5 - Hyperlipidemia, unspecified Code(s): E78.5 - Hyperlipidemia, unspecified Status: Chronic Assessment and Plan: Continue simvastatin Plan Diet: Consistent carb DVT prophylaxis: SCDs, Xarelto lines/drains: PIV Fluids: NA Code status: Full Prior Studies I have reviewed the following patient records and this information was taken into consideration when formulating the assessment and plan.: previous labs Time Spent with Patient Time with patient: less than 45 minutes HPI Date of Consult Consult date: 09/01/25 Requesting Physician: Sebastian Ackerman MD Primary Care Provider: Jung Hillman, Consult Narrative Narrative: Dung Mohr is a 80 year old male is admitted inpt with ortho for R hip surgery. HM consulted for DM and HTN management. Pt reports today that his pain gets better daily. He will be going to rehab upon discharge today. Review of Systems Review of Systems: All systems reviewed & are unremarkable except as noted in HPI and below PMFSH Past Medical History Medical History (Updated 08/29/25 @ 15:12 by Verena Lyons APRN) Hyperlipidemia Hypertension Diabetes Prostate cancer Surgical History Surgical History (Updated 08/30/25 @ 06:44 by Sebastian Ackerman MD) No pertinent past surgical history Family History Family History Mother Family history non-contributory Grandparent Cerebrovascular accident Father Heart disease Social History Social History Smoking packs per day: 1 Smoking cigarettes per day: 20.0 Years smoked: 50 Smoking pack-years: 50.00 Smoking status: Former smoker Additional smoking assessment comments: Denies any nicotine Alcohol intake: never Substance use: never Substance use type: does not use Lack of Transportation: No Lack of Food: Never True Current Housing: I Have Housing Concerned About Future Housing: No Difficulty Paying Gas/Electric Bills: No Difficulty Paying for Meds: No Currently Unemployed: No Education: Master's Degree or Higher Difficulty w/ Childcare or Family Care: No Living arrangements: incarcerated Additional living arrangements comments: Occupation/Education: retired Gender identity (if verbalized by the patient): Male Sexual Orientation (if Verbalized by the Patient): Straight or Heterosexual Spiritual care concerns: No Meds Home Medications and Allergies Home Medications ?Medication ?Instructions ?Recorded ?Confirmed ?Type Xantdi 80 mg PO DAILY 05/20/23 08/04/25 History indapamide 1.25 mg tablet 1.25 mg PO DAILY 05/20/23 08/29/25 History lisinopril 40 mg tablet 40 mg PO DAILY 05/20/23 08/29/25 History omeprazole 20 mg capsule,delayed 20 mg PO DAILY 05/20/23 08/29/25 History release aspirin 81 mg tablet 81 mg PO DAILY 07/21/25 08/29/25 History cholecalciferol (vitamin D3) 25 25 mcg PO DAILY 07/21/25 08/29/25 History mcg (1,000 unit) capsule metformin 500 mg tablet,extended 1,000 mg PO QPM 07/21/25 08/29/25 History release 24 hr simvastatin 40 mg tablet 20 mg PO QPM 07/21/25 08/29/25 History cholecalciferol (vitamin D3) 25 25 mcg PO DAILY 08/04/25 08/29/25 History mcg (1,000 unit) capsule (Vitamin D3) insulin glargine 100 unit/mL (3 40 unit subcut QPM 08/08/25 08/29/25 History mL) subcutaneous pen (Lantus Solostar U-100 Insulin) pregabalin 75 mg capsule 75 mg PO DAILY 08/29/25 08/29/25 History doxycycline hyclate 100 mg tablet 100 mg PO BID #20 tabs 08/30/25 Rx rivaroxaban 10 mg tablet (Xarelto) 10 mg PO DAILY #20 tabs 08/30/25 Rx alginate dressing (Kaltostat Rope 1 ea topical DAILY #5 ea 09/01/25 Rx bandage) amlodipine 5 mg tablet (Norvasc) 5 mg PO DAILY #60 tabs 09/01/25 Rx hydrocodone 7.5 mg-acetaminophen 1 tablet PO Q4H PRN pain #40 tabs 09/01/25 Rx 325 mg tablet Allergies Allergy/AdvReac Type Severity Reaction Status Date / Time No Known Allergies Allergy Verified 08/29/25 11:28 Vital Signs Vital Signs - 24 hr 08/31/25 14:00 08/31/25 20:00 08/31/25 21:00 Temperature 98.8 F 97.3 F L Pulse Rate 108 H 91 Respiratory Rate 20 14 Blood Pressure 130/84 145/81 H Pulse Oximetry 98 96 Oxygen Delivery Room Air 09/01/25 05:30 Temperature 97 F L Pulse Rate 90 Respiratory Rate 20 Blood Pressure 174/89 H Pulse Oximetry 95 Oxygen Delivery Exam Narrative: GENERAL: non-toxic appearing, in no acute distress. HEAD: Normocephalic, atraumatic. NOSE: Normal no drainage. THROAT: Pharynx clear, no exudate. NECK: Trachea midline. No adenopathy, no masses. RESPIRATORY: Airway patent, respirations nonlabored. CTA. CARDIOVASCULAR: Regular rate and rhythm GASTROINTESTINAL: Abdomen is soft and nontender. No organomegaly. Bowel sounds normal in all quadrants. GENITOURINARY: Defer MUSCULOSKELETAL: Moves all extremities. No gross deformities. Surgical dressing to right hip. Distal pulses palpable. Extremity warm SKIN: Warm, dry, normal color. NEURO: A&O X4. Speech clear PSYCHIATRIC: Normal interaction Const: General: comfortable Results Labs 09/01/25 05:50 09/01/25 05:50 Labs: Short CBC 09/01/25 Range/Units 05:50 WBC 7.9 (4.5-10.0) K/mm3 Hgb 9.7 L (14.0-18.0) g/dL Hct 29.4 L (42.0-52.0) % Plt Count 232 (150-375) k/mm3 BMP 09/01/25 05:50 Sodium 129 L Potassium 3.7 Chloride 96 L Carbon Dioxide 28 BUN 21 H Creatinine 0.70 Glucose 229 H Calcium 9.1 Liver Function 09/01/25 Range/Units 05:50 Total Bilirubin 1.0 (0.2-1.3) mg/dL AST 31 (17-59) U/L ALT 13 (6-50) U/L Alkaline Phosphatase 64 (38-126) U/L Albumin 3.7 (3.5-5.1) g/dL Quality VTE Prophylaxis VTE prophylaxis: mechanical ordered and pharmacologic ordered
== END 2025-09-01 14:40 ==
LOC: ANHSURGERY 16:16 → ANH3MEDSUR 16:16
PROVIDERS: Admitting Provider Orthopaedic Surgery; PCP Family Medicine; Visit Provider Orthopaedic Surgery
PROC: (CPT 27130; principal; 2025-08-29 07:30)
DX: M16.11 Unilateral primary osteoarthritis, right hip (principal); E11.65 Type 2 diabetes mellitus with hyperglycemia; I10 Essential (primary) hypertension; E78.5 Hyperlipidemia, unspecified; Z11.52 Encounter for screening for COVID-19; Z79.4 Long term (current) use of insulin; Z85.46 Personal history of malignant neoplasm of prostate; Z87.891 Personal history of nicotine dependence; Z79.82 Long term (current) use of aspirin; Z79.84 Long term (current) use of oral hypoglycemic drugs
CPT/HCPCS: 27130; 36415; 80048; 80053; 82948; 85025; 86850; 86900; 86901; 87635; 97110; 97162; 97166; 97530; 97535; 99199; J0690; A9270; C1776; G0378; J1171; J1741; J1815; J2371; J2704; J3010; J3290; J3373; J7030; J7120